=== PATIENT | female | born 1945 | race Caucasian/White ===

== ENCOUNTER 2018-06-27 08:28 | Inpatient (IN) | payer MEDICARE, OTHER ==
[~2018-06-27] VITALS: Ht 157.5 cm; Wt 89.8 kg
--- NOTE | 2018-06-27 08:38 | PHYS DOC ---
Adult General HPI HPI Patient is a 72 year old female who presents with constant 8 out of 9 left shoulder and left elbow pain that began today after she fell. Patient states she was outside working when she turned around too quick felt dizzy and fell. Patient denies any loss of consciousness. She states she hit her head on the ground. She is on a baby aspirin. Denies any neck pain. Was not tried anything for her pain. Review of Systems Review of Systems Constitutional: Denies fever or chills [] Eyes: Denies change in visual acuity, redness, or eye pain [] HENT: Denies nasal congestion or sore throat [] Respiratory: Denies cough or shortness of breath [] Cardiovascular: No additional information not addressed in HPI [] GI: Denies abdominal pain, nausea, vomiting, bloody stools or diarrhea [] : Denies dysuria or hematuria [] Musculoskeletal: Reports left shoulder pain, left elbow pain Integument: Denies rash or skin lesions [] Neurologic: Denies headache, focal weakness or sensory changes [] All other systems were reviewed and found to be within normal limits, except as documented in this note. Current Medications Current Medications Current Medications Medications (Trade) Dose Ordered Sig/Antonino Start Time Stop Time Status Last Admin Dose Admin Acetaminophen/ Hydrocodone Bitart (Lortab 5/325) 1 tab 1X ONCE 06/27/18 09:00 06/27/18 09:01 DC 06/27/18 09:02 1 TAB Cyclobenzaprine HCl (Flexeril) 10 mg 1X ONCE 06/27/18 09:00 06/27/18 09:01 DC 06/27/18 09:02 10 MG Sodium Chloride 1,000 ml @ 1,000 mls/hr 1X ONCE 06/27/18 09:30 06/27/18 10:29 DC 06/27/18 11:31 1,000 MLS/HR Allergies Allergies Allergies Coded Allergies Type Severity Reaction Last Updated Verified codeine Allergy Unknown "SICK" 06/27/18 Yes Physical Exam Physical Exam Constitutional: Well developed, well nourished, no acute distress, non-toxic appearance. [] HENT: Normocephalic, atraumatic, bilateral external ears normal, oropharynx moist, no oral exudates, nose normal. [] Eyes: PERRLA, EOMI, conjunctiva normal, no discharge. [] Neck: Normal range of motion, no tenderness, supple, no stridor. [] Cardiovascular:Heart rate regular rhythm, no murmur [] Lungs & Thorax: Bilateral breath sounds clear to auscultation [] Abdomen: Bowel sounds normal, soft, no tenderness, no masses, no pulsatile masses. [] Skin: Warm, dry, no erythema, no rash. [] Back: No tenderness, no CVA tenderness. [] Extremities: Left shoulder left elbow with no obvious deformity. Tenderness on palpation of the left olecranon process,very limited passive range of motion to the left shoulder and left elbow. Full range of motion to the left fingers. Adequate radial medial and ulnar sensation to the left upper extremity. +2 left radial pulse. Cap refill less than 2 seconds the left fingers. Neurologic: Alert and oriented X 3, normal motor function, normal sensory function, no focal deficits noted. Cranial nerves II through XII intact Psychologic: Affect normal, judgement normal, mood normal. [] Current Patient Data Vital Signs Vital Signs Date Time Temp Pulse Resp B/P (MAP) Pulse Ox O2 Delivery O2 Flow Rate FiO2 06/27/18 09:02 16 94 Room Air 06/27/18 08:30 99.1 96 159/74 (102) 99.1 Lab Values Laboratory Tests Test 06/27/18 09:06 06/27/18 09:26 06/27/18 10:05 Glucose (Fingerstick) 115 mg/dL (70-99) H Urine Collection Type Unknown Urine Color Yellow Urine Clarity Clear Urine pH 8.0 Urine Specific [place] 1.020 Urine Protein Negative mg/dL (NEG-TRACE) Urine Glucose (UA) Negative mg/dL (NEG) Urine Ketones (Stick) Negative mg/dL (NEG) Urine Blood Negative (NEG) Urine Nitrite Negative (NEG) Urine Bilirubin Negative (NEG) Urine Urobilinogen Dipstick 1.0 mg/dL (0.2 mg/dL) Urine Leukocyte Esterase Small (NEG) Urine RBC 0 /HPF (0-2) Urine WBC 5-10 /HPF (0-4) Urine Squamous Epithelial Cells Occ /LPF Urine Transitional Epithelial Cells Occ /LPF Urine Renal Epithelial Cells Occ /LPF Urine Bacteria Few /HPF (0-FEW) Urine Mucus Slight /LPF White Blood Count 10.6 x10^3/uL (4.0-11.0) Red Blood Count 4.37 x10^6/uL (3.50-5.40) Hemoglobin 13.4 g/dL (12.0-15.5) Hematocrit 38.8 % (36.0-47.0) Mean Corpuscular Volume 89 fL (79-100) Mean Corpuscular Hemoglobin 31 pg (25-35) Mean Corpuscular Hemoglobin Concent 35 g/dL (31-37) Red Cell Distribution Width 13.7 % (11.5-14.5) Platelet Count 273 x10^3/uL (140-400) Neutrophils (%) (Auto) 83 % (31-73) H Lymphocytes (%) (Auto) 10 % (24-48) L Monocytes (%) (Auto) 5 % (0-9) Eosinophils (%) (Auto) 2 % (0-3) Basophils (%) (Auto) 1 % (0-3) Neutrophils # (Auto) 8.8 x10^3uL (1.8-7.7) H Lymphocytes # (Auto) 1.0 x10^3/uL (1.0-4.8) Monocytes # (Auto) 0.5 x10^3/uL (0.0-1.1) Eosinophils # (Auto) 0.2 x10^3/uL (0.0-0.7) Basophils # (Auto) 0.1 x10^3/uL (0.0-0.2) Sodium Level 143 mmol/L (136-145) Potassium Level 3.7 mmol/L (3.5-5.1) Chloride Level 107 mmol/L (98-107) Carbon Dioxide Level 27 mmol/L (21-32) Anion Gap 9 (6-14) Blood Urea Nitrogen 12 mg/dL (7-20) Creatinine 0.9 mg/dL (0.6-1.0) Estimated GFR (Cockcroft-Gault) 61.9 Glucose Level 124 mg/dL (70-99) H Calcium Level 8.8 mg/dL (8.5-10.1) Magnesium Level 1.8 mg/dL (1.8-2.4) Creatine Kinase 226 U/L (26-192) H Creatine Kinase MB (Mass) 3.3 ng/mL (0.0-3.6) Creatine Kinase MB Relative Index 1.5 % (0-4) Troponin I Quantitative < 0.017 ng/mL (0.000-0.055) Laboratory Tests 06/27/18 10:05 Laboratory Tests 06/27/18 10:05 EKG EKG 10:[address] Katz sinus rhythm heart rate 80 no STEMI Radiology/Procedures Radiology/Procedures []PROCEDURE: CT HEAD WO CONTRAST ADDENDUM PQRS Compliance Statement: One or more of the following individualized dose reduction techniques were utilized for this examination: 1. Automated exposure control 2. Adjustment of the mA and/or kV according to patient size 3. Use of iterative reconstruction technique Electronically signed by: John Rodney MD (06/27/2018 10:50 AM) [facility] DICTATED AND SIGNED BY: JOHN RODNEY MD DATE: 06/27/18 1050 CC: LIDYA ALCARAZ APRN; UNKNOWN PCP NAME ~ CT of the head without contrast, 06/27/2018: HISTORY: Fall, head injury There is mild cerebral atrophy. The ventricles are within normal limits in size. There is no shift of the midline structures. There is no evidence of acute intracranial hemorrhage or mass effect. There is calcific plaquing of the distal internal carotid and vertebral arteries. IMPRESSION: No acute intracranial abnormality is detected. Electronically signed by: John Rodney MD (06/27/2018 10:31 AM) [facility] DICTATED and SIGNED BY: JOHN RODNEY MD DATE: 06/27/18 1030 PROCEDURE: ELBOW LEFT 3V Left shoulder, 2 views, 06/27/2018: HISTORY: Fall There is a fracture of the proximal left humerus involving the neck and head with moderate impaction at the fracture site. There are mild underlying degenerative changes at the shoulder. IMPRESSION: Acute proximal humeral fracture. Left elbow, 3 views, 06/27/2018: An AP view was not obtained, presumably due to difficulties in patient positioning relative to the proximal humeral fracture. No elbow fracture or joint effusion is evident on this limited exam. Electronically signed by: John Rodney MD (06/27/2018 9:26 AM) [facility] DICTATED and SIGNED BY: JOHN RODNEY MD DATE: 06/27/18 0910 Course & Med Decision Making Course & Med Decision Making Pertinent Labs and Imaging studies reviewed. (See chart for details) This is a 72-year-old female patient presented to the ED today with left shoulder and left elbow pain status post falling. Patient states she was working on her garden when she turned around too quickly and fell. She hit her head on the ground, no LOC, no neck pain. Left shoulder x-rays interpreted by radiologist were noted for -Acute proximal humeral fracture. Patient was placed in a sling. Ct of the head is negative Consulted with Mariel RANKIN for Dr. Gusman, she states patient can be discharged and follow-up in the office and Dr. Garcia will take care of the fracture after she sees patient in the clinic. Gave patient results and information follow-up with 's office, patient states she is not able to care for herself and her been states he recently had prostate surgery and can not care for patient. 11:[address] Melgoza and patient was admitted. Dragon Disclaimer Dragon Disclaimer This electronic medical record was generated, in whole or in part, using a voice recognition dictation system. Departure Departure Impression: Primary Impression: Fall from standing Additional Impressions: Left elbow contusion Humerus head fracture Disposition: ADMITTED INPATIENT Condition: STABLE Problem Qualifiers Primary Impression: Fall from standing Encounter type: initial encounter Qualified Codes: W19.XXXA - Unspecified fall, initial encounter Additional Impressions: Left elbow contusion Encounter type: initial encounter Qualified Codes: S50.02XA - Contusion of left elbow, initial encounter Humerus head fracture Encounter type: initial encounter Fracture type: closed Laterality: left Qualified Codes: S42.292A - Other displaced fracture of upper end of left humerus, initial encounter for closed fracture LIDYA ALCARAZ APRN Jun 27, 2018 08:38
[2018-06-27] MEDS ORDERED: HYDROcodone/APAP 5/325MG 1 TAB TABLET PO ONE (09:00)
[2018-06-27] MEDS ORDERED: CYCLOBENZAPRINE 10 MG TABLET. PO ONE (09:00)
[2018-06-27] MEDS ORDERED: IV NORMAL SALINE 1000ML BAG 1,000 ML IV ONE (09:30)
--- NOTE | 2018-06-27 09:30 | RAD ---
Left shoulder, 2 views, 06/27/2018: HISTORY: Fall There is a fracture of the proximal left humerus involving the neck and head with moderate impaction at the fracture site. There are mild underlying degenerative changes at the shoulder. IMPRESSION: Acute proximal humeral fracture. Left elbow, 3 views, 06/27/2018: An AP view was not obtained, presumably due to difficulties in patient positioning relative to the proximal humeral fracture. No elbow fracture or joint effusion is evident on this limited exam. Electronically signed by: John Rodney MD (06/27/2018 9:26 AM) [facility]
[2018-06-27 10:32] LABS: BASO # 0.1 x10^3/uL (0.0-0.2); BASO % 1 % (0-3); EOS # 0.2 x10^3/uL (0.0-0.7); EOS % 2 % (0-3); HEMATOCRIT 38.8 % (36.0-47.0); HEMOGLOBIN 13.4 g/dL (12.0-15.5); LYMPH % 10 % (24-48); MEAN CORPUSCULAR HEMOGLOBIN 31 pg (25-35); MEAN CORPUSCULAR HGB CONC 35 g/dL (31-37); MEAN CORPUSCULAR VOLUME 89 fL (79-100); MONO # 0.5 x10^3/uL (0.0-1.1); MONO % 5 % (0-9); NEUT # 8.8 x10^3uL (1.8-7.7); NEUT % 83 % (31-73); PLATELET COUNT 273 x10^3/uL (140-400); RED BLOOD COUNT 4.37 x10^6/uL (3.50-5.40); RED CELL DISTRIBUTION WIDTH 13.7 % (11.5-14.5); WHITE BLOOD COUNT 10.6 x10^3/uL (4.0-11.0)
[2018-06-27 10:34] LABS: CALCIUM 8.8 mg/dL (8.5-10.1); CREATININE 0.9 mg/dL (0.6-1.0); GFR 61.9; MAGNESIUM 1.8 mg/dL (1.8-2.4); POTASSIUM 3.7 mmol/L (3.5-5.1)
--- NOTE | 2018-06-27 10:35 | RAD ---
CT of the head without contrast, 06/27/2018: HISTORY: Fall, head injury There is mild cerebral atrophy. The ventricles are within normal limits in size. There is no shift of the midline structures. There is no evidence of acute intracranial hemorrhage or mass effect. There is calcific plaquing of the distal internal carotid and vertebral arteries. IMPRESSION: No acute intracranial abnormality is detected. Electronically signed by: John Rodney MD (06/27/2018 10:31 AM) [facility]
[2018-06-27] MEDS ORDERED: fentaNYL PF VIAL 100 MCG/2 ML VIAL IV ONE (11:15)
[2018-06-27 11:31] LABS: BILIRUBIN,URINE NEGATIVE (NEG); CLARITY,URINE CLEAR; COLOR,URINE YELLOW; NITRITE,URINE NEGATIVE (NEG); PROTEIN,URINE NEGATIVE (NEG-TRACE)
[2018-06-27 11:42] LABS: BACTERIA,URINE FEW /HPF (0-FEW); RBC,URINE 0 /HPF (0-2); SQUAMOUS EPITHELIAL CELL,UR OCC /LPF
[2018-06-27] MEDS ORDERED: ACETAMINOPHEN 325 MG TABLET. PO PRN ×2 (12:15→16:45)
[2018-06-27] MEDS ORDERED: ONDANSETRON PF 4 MG/2 ML VIAL. IV PRN ×2 (12:15→16:45)
[2018-06-27] MEDS ORDERED: ALPRAZolam 0.25 MG TABLET PO ONE (13:30)
[2018-06-27] MEDS ORDERED: INSU100I13 SQ (13:39)
[2018-06-27] MEDS ORDERED: SERT100T PO (13:39)
[2018-06-27] MEDS ORDERED: PROVENTIL HFA6.7 GM IH (13:39)
[2018-06-27] MEDS ORDERED: SIMV80TA7 PO (13:39)
[2018-06-27] MEDS ORDERED: AMLO1CAP6 PO (13:39)
[2018-06-27] MEDS ORDERED: ASPI-612 PO (13:39)
[2018-06-27] MEDS ORDERED: OMEG100020 PO (13:39)
[2018-06-27] MEDS ORDERED: UBID100C26 PO (13:39)
[2018-06-27] MEDS ORDERED: BUPR150T8 PO (13:39)
[2018-06-27] MEDS ORDERED: FLUT1DIS IH (13:39)
[2018-06-27] MEDS ORDERED: NIAC1000 PO (13:39)
[2018-06-27] MEDS ORDERED: LEVO100T5 PO (13:39)
[2018-06-27] MEDS: fentaNYL PF VIAL 100 MCG/2 ML VIAL IV PRN ×3 (15:40→22:14)
[2018-06-27 16:00] VITALS: BP 143/80
[2018-06-27 16:05] VITALS: BP 139/65
[2018-06-27 16:10] VITALS: BP 140/70
[2018-06-27] MEDS ORDERED: NON FORMULARY ITEM (Albuterol Sulfate (Proventil Hfa Inhaler) 2 PUFF) IH PRN (16:15)
[2018-06-27] MEDS ORDERED: DEXTROSE 50% 25 GM / 50ML DISP.SYRIN. IV PRN (16:15)
[2018-06-27] MEDS: ALBUTEROL SULFATE 2.5 MG/3 ML NEBU. NEB SCH ×2 (16:30→20:37)
[2018-06-27] MEDS ORDERED: ALBUTEROL SULFATE 2.5 MG/3 ML NEBU. NEB PRN (16:30)
[2018-06-27] MEDS ORDERED: DOCUSATE SODIUM 100 MG CAPSULE. PO PRN (16:45)
[2018-06-27] MEDS ORDERED: hydrALAZINE 20 MG/ML VIAL. IVP PRN (16:45)
--- NOTE | 2018-06-27 16:50 | PDOC1 ---
History and Physical Date of Admission Date of Admission 06/27/18 Identification/Chief Complaint Chief Complaint fall with left arm fx Source Source: Chart review, Patient History of Present Illness History of Present Illness Patient is a 72 year old female who presents with pain in the left arm. Pt has been feeling lightheaded in the past 2 weeks, especially when she just stands up, fell 2 weeks ago, didnot seek for medical care , has back rib cage pain. Today she was standing outside at the yard, with water around , felt lightheaded , then fell. She denies trippled or the floor was slippery to her. She hit her head, no broken skin, no neurologic deficit, and left arm, pain. EMS called, sent to ER, XR showed proximal left humerus fx. as per ER nurse, Dr. Garcia is the specialist for the fx, cannot see her today, maybe tmr or outpt in the clinic? Past Medical History Cardiovascular: HTN Endocrine: Diabetes Past Surgical History Past Surgical History: No pertinent history Family History Family History: Hypertension Social History Smoke: No ALCOHOL: none Drugs: None Current Problem List Problem List Problems Medical Problems: (1) Contusion of left shoulder Status: Acute (2) Fall from standing Status: Acute (3) Humerus head fracture Status: Acute (4) Left elbow contusion Status: Acute Current Medications Current Medications Current Medications Medications (Trade) Dose Ordered Sig/Antonino Start Time Stop Time Status Last Admin Dose Admin Acetaminophen (Tylenol) 650 mg PRN Q4HRS PRN 06/27/18 12:15 06/28/18 12:14 Acetaminophen/ Hydrocodone Bitart (Lortab 5/325) 1 tab 1X ONCE 06/27/18 09:00 06/27/18 09:01 DC 06/27/18 09:02 1 TAB Acetaminophen/ Hydrocodone Bitart (Lortab 7.5/325) 1 tab PRN Q6HRS PRN 06/27/18 16:15 Albuterol Sulfate (Ventolin Neb Soln) 2.5 mg RTQID 06/27/18 16:30 Alprazolam (Xanax) 0.25 mg 1X ONCE 06/27/18 13:30 06/27/18 13:31 DC 06/27/18 13:37 0.25 MG Amlodipine Besylate (Norvasc) 5 mg DAILY 06/27/18 17:00 Aspirin (Ecotrin) 81 mg DAILY 06/28/18 09:00 Atorvastatin Calcium (Lipitor) 40 mg QHS 06/27/18 21:00 Budesonide (Pulmicort) 0.5 mg RTBID 06/27/18 20:00 Bupropion HCl (Wellbutrin Sr) 150 mg BID 06/27/18 21:00 Cyclobenzaprine HCl (Flexeril) 10 mg 1X ONCE 06/27/18 09:00 06/27/18 09:01 DC 06/27/18 09:02 10 MG Dextrose (Dextrose 50%-Water Syringe) 12.5 gm PRN Q15MIN PRN 06/27/18 16:15 Fentanyl Citrate (Fentanyl 2ml Vial) 50 mcg PRN Q2HR PRN 06/27/18 12:15 06/28/18 12:14 06/27/18 15:40 50 MCG Insulin Glargine (Lantus) 40 units QHS 06/27/18 21:00 Insulin Human Lispro (HumaLOG) 0-9 UNITS TIDWMEALS 06/27/18 17:00 Levothyroxine Sodium (Synthroid) 100 mcg DAILY06 06/28/18 06:00 Lisinopril (Prinivil) 20 mg DAILY 06/27/18 17:00 Niacin (Slo-Niacin) 1,000 mg QHS 06/27/18 21:00 Non-Formulary Medication (Albuterol Sulfate (Proventil Hfa Inhaler)) 2 puff PRN Q4HRS PRN 06/27/18 16:15 UNV Non-Formulary Medication (Amlodipine Besylate/ Benazepril (Lotrel 5-20 Mg Capsule)) 1 cap DAILY 06/28/18 09:00 UNV Non-Formulary Medication (Fluticasone/ Salmeterol (Advair 100-50 Diskus)) 1 puff BID 06/27/18 21:00 UNV Non-Formulary Medication (Ubidecarenone (Coq-10)) 100 mg HS 06/27/18 21:00 UNV Ondansetron HCl (Zofran) 4 mg PRN Q8HRS PRN 06/27/18 12:15 06/28/18 12:14 Sertraline HCl (Zoloft) 200 mg DAILY 06/28/18 09:00 Sodium Chloride 1,000 ml @ 1,000 mls/hr 1X ONCE 06/27/18 09:30 06/27/18 10:29 DC 06/27/18 11:31 1,000 MLS/HR Allergies Allergies Allergies Coded Allergies Type Severity Reaction Last Updated Verified codeine Allergy Unknown "SICK" 06/27/18 Yes ROS Review of System CONSTITUTIONAL: No fever or chills EYES: No recent changes SKIN: No rash or itching CARDIOVASCULAR: No chest pain, syncope, palpitations, or edema RESPIRATORY: No SOB or cough GASTROINTESTINAL: No nausea, vomiting or abdominal pain NEUROLOGICAL: No headaches or weakness ENDOCRINE: No cold or heat intolerance GENITOURINARY: No urgency or frequency of urination MUSCULOSKELETAL: No back pain or joint pain LYMPHATICS: No enlarged lymph nodes PSYCHIATRIC: No anxiety or depression Physical Exam Physical Exam GEN.: No apparent distress. Alert and oriented. HEENT: Head is normocephalic, atraumatic NECK: Supple. LUNGS: Clear to auscultation. HEART: RRR, S1, S2 present. Peripheral pulses intact ABDOMEN: Soft, nontender. Positive bowel sounds. EXTREMITIES: Without any cyanosis. left arm in sling, pain ifmove, fingers move ok. NEUROLOGIC: Normal speech, normal tone PSYCHIATRIC: Normal affect, normal mood. SKIN: No ulcerations Vitals Vitals Vital Signs Date Time Temp Pulse Resp B/P (MAP) Pulse Ox O2 Delivery O2 Flow Rate FiO2 06/27/18 16:10 18 93 06/27/18 15:40 Room Air 06/27/18 12:00 90 146/72 (96) 06/27/18 08:30 99.1 99.1 Labs Labs Laboratory Tests Test 06/27/18 09:06 06/27/18 09:26 06/27/18 10:05 Glucose (Fingerstick) 115 mg/dL (70-99) Urine Collection Type Unknown Urine Color Yellow Urine Clarity Clear Urine pH 8.0 Urine Specific [place] 1.020 Urine Protein Negative mg/dL (NEG-TRACE) Urine Glucose (UA) Negative mg/dL (NEG) Urine Ketones (Stick) Negative mg/dL (NEG) Urine Blood Negative (NEG) Urine Nitrite Negative (NEG) Urine Bilirubin Negative (NEG) Urine Urobilinogen Dipstick 1.0 mg/dL (0.2 mg/dL) Urine Leukocyte Esterase Small (NEG) Urine RBC 0 /HPF (0-2) Urine WBC 5-10 /HPF (0-4) Urine Squamous Epithelial Cells Occ /LPF Urine Transitional Epithelial Cells Occ /LPF Urine Renal Epithelial Cells Occ /LPF Urine Bacteria Few /HPF (0-FEW) Urine Mucus Slight /LPF White Blood Count 10.6 x10^3/uL (4.0-11.0) Red Blood Count 4.37 x10^6/uL (3.50-5.40) Hemoglobin 13.4 g/dL (12.0-15.5) Hematocrit 38.8 % (36.0-47.0) Mean Corpuscular Volume 89 fL (79-100) Mean Corpuscular Hemoglobin 31 pg (25-35) Mean Corpuscular Hemoglobin Concent 35 g/dL (31-37) Red Cell Distribution Width 13.7 % (11.5-14.5) Platelet Count 273 x10^3/uL (140-400) Neutrophils (%) (Auto) 83 % (31-73) Lymphocytes (%) (Auto) 10 % (24-48) Monocytes (%) (Auto) 5 % (0-9) Eosinophils (%) (Auto) 2 % (0-3) Basophils (%) (Auto) 1 % (0-3) Neutrophils # (Auto) 8.8 x10^3uL (1.8-7.7) Lymphocytes # (Auto) 1.0 x10^3/uL (1.0-4.8) Monocytes # (Auto) 0.5 x10^3/uL (0.0-1.1) Eosinophils # (Auto) 0.2 x10^3/uL (0.0-0.7) Basophils # (Auto) 0.1 x10^3/uL (0.0-0.2) Sodium Level 143 mmol/L (136-145) Potassium Level 3.7 mmol/L (3.5-5.1) Chloride Level 107 mmol/L (98-107) Carbon Dioxide Level 27 mmol/L (21-32) Anion Gap 9 (6-14) Blood Urea Nitrogen 12 mg/dL (7-20) Creatinine 0.9 mg/dL (0.6-1.0) Estimated GFR (Cockcroft-Gault) 61.9 Glucose Level 124 mg/dL (70-99) Calcium Level 8.8 mg/dL (8.5-10.1) Magnesium Level 1.8 mg/dL (1.8-2.4) Creatine Kinase 226 U/L (26-192) Creatine Kinase MB (Mass) 3.3 ng/mL (0.0-3.6) Creatine Kinase MB Relative Index 1.5 % (0-4) Troponin I Quantitative < 0.017 ng/mL (0.000-0.055) Laboratory Tests Test 06/27/18 09:06 06/27/18 09:26 06/27/18 10:05 Glucose (Fingerstick) 115 mg/dL (70-99) Urine Collection Type Unknown Urine Color Yellow Urine Clarity Clear Urine pH 8.0 Urine Specific [place] 1.020 Urine Protein Negative mg/dL (NEG-TRACE) Urine Glucose (UA) Negative mg/dL (NEG) Urine Ketones (Stick) Negative mg/dL (NEG) Urine Blood Negative (NEG) Urine Nitrite Negative (NEG) Urine Bilirubin Negative (NEG) Urine Urobilinogen Dipstick 1.0 mg/dL (0.2 mg/dL) Urine Leukocyte Esterase Small (NEG) Urine RBC 0 /HPF (0-2) Urine WBC 5-10 /HPF (0-4) Urine Squamous Epithelial Cells Occ /LPF Urine Transitional Epithelial Cells Occ /LPF Urine Renal Epithelial Cells Occ /LPF Urine Bacteria Few /HPF (0-FEW) Urine Mucus Slight /LPF White Blood Count 10.6 x10^3/uL (4.0-11.0) Red Blood Count 4.37 x10^6/uL (3.50-5.40) Hemoglobin 13.4 g/dL (12.0-15.5) Hematocrit 38.8 % (36.0-47.0) Mean Corpuscular Volume 89 fL (79-100) Mean Corpuscular Hemoglobin 31 pg (25-35) Mean Corpuscular Hemoglobin Concent 35 g/dL (31-37) Red Cell Distribution Width 13.7 % (11.5-14.5) Platelet Count 273 x10^3/uL (140-400) Neutrophils (%) (Auto) 83 % (31-73) Lymphocytes (%) (Auto) 10 % (24-48) Monocytes (%) (Auto) 5 % (0-9) Eosinophils (%) (Auto) 2 % (0-3) Basophils (%) (Auto) 1 % (0-3) Neutrophils # (Auto) 8.8 x10^3uL (1.8-7.7) Lymphocytes # (Auto) 1.0 x10^3/uL (1.0-4.8) Monocytes # (Auto) 0.5 x10^3/uL (0.0-1.1) Eosinophils # (Auto) 0.2 x10^3/uL (0.0-0.7) Basophils # (Auto) 0.1 x10^3/uL (0.0-0.2) Sodium Level 143 mmol/L (136-145) Potassium Level 3.7 mmol/L (3.5-5.1) Chloride Level 107 mmol/L (98-107) Carbon Dioxide Level 27 mmol/L (21-32) Anion Gap 9 (6-14) Blood Urea Nitrogen 12 mg/dL (7-20) Creatinine 0.9 mg/dL (0.6-1.0) Estimated GFR (Cockcroft-Gault) 61.9 Glucose Level 124 mg/dL (70-99) Calcium Level 8.8 mg/dL (8.5-10.1) Magnesium Level 1.8 mg/dL (1.8-2.4) Creatine Kinase 226 U/L (26-192) Creatine Kinase MB (Mass) 3.3 ng/mL (0.0-3.6) Creatine Kinase MB Relative Index 1.5 % (0-4) Troponin I Quantitative < 0.017 ng/mL (0.000-0.055) VTE Prophylaxis Ordered VTE Prophylaxis Devices: Yes VTE Pharmacological Prophylaxi: Yes Assessment/Plan Assessment/Plan left humerus traumatic fx post fall dizzy, lightheaded unsteady gait htn dm2 hypothyroidism plan: fu with ortho cont home meds decrease lantus , npo incase sx tmr, ssi check carotid US, rib XR vitb12, vitd pain control PTOT check orthostatic BP, talked to nurse and family at bedside. RAUL SALINAS MD Jun 27, 2018 16:50
[2018-06-27] MEDS: amLODIPine BESYLATE 5 MG TABLET PO SCH (17:22)
[2018-06-27] MEDS: HYDROcodone/APAP 7.5/325MG 1 TAB TABLET PO PRN (17:23)
[2018-06-27] MEDS: LISINOPRIL 20 MG TABLET PO SCH (17:23)
[2018-06-27] MEDS: INSULIN LISPRO 300 UNITS/3 ML INSULN.PEN. SQ SCH (17:30)
[2018-06-27 19:00] VITALS: BP 119/58
[2018-06-27] MEDS: BUDESONIDE 0.5 MG/2 ML NEBU. NEB SCH (20:37)
[2018-06-27] MEDS ORDERED: NON FORMULARY ITEM (Fluticasone/Salmeterol (Advair 100-50 Diskus) 1 PUFF) IH SCH (21:00)
[2018-06-27] MEDS ORDERED: NON FORMULARY ITEM (Ubidecarenone (Coq-10) 100 MG) PO SCH (21:00)
[2018-06-27] MEDS: NIACIN ER 500 MG TABLET.ER PO SCH (22:13)
[2018-06-27] MEDS: ATORVASTATIN CALCIUM 40 MG TABLET. PO SCH (22:13)
[2018-06-27] MEDS: buPROPion SR 150 MG TABLET.SA PO SCH (22:13)
[2018-06-27] MEDS: INSULIN GLARGINE 300 UNITS/3 ML INSULN.PEN. SQ SCH (22:21)
[2018-06-27 23:00] VITALS: BP 146/77
[2018-06-28] MEDS: fentaNYL PF VIAL 100 MCG/2 ML VIAL IV PRN (01:49)
[2018-06-28 03:00] VITALS: BP 153/80
[2018-06-28 04:01] LABS: BASO # 0.1 x10^3/uL (0.0-0.2); BASO % 1 % (0-3); EOS # 0.1 x10^3/uL (0.0-0.7); EOS % 1 % (0-3); HEMATOCRIT 36.9 % (36.0-47.0); HEMOGLOBIN 12.8 g/dL (12.0-15.5); LYMPH # 1.7 x10^3/uL (1.0-4.8); LYMPH % 19 % (24-48); MEAN CORPUSCULAR HEMOGLOBIN 31 pg (25-35); MEAN CORPUSCULAR HGB CONC 35 g/dL (31-37); MEAN CORPUSCULAR VOLUME 89 fL (79-100); MONO # 0.9 x10^3/uL (0.0-1.1); MONO % 10 % (0-9); NEUT # 6.3 x10^3uL (1.8-7.7); NEUT % 69 % (31-73); PLATELET COUNT 237 x10^3/uL (140-400); RED BLOOD COUNT 4.15 x10^6/uL (3.50-5.40); RED CELL DISTRIBUTION WIDTH 13.6 % (11.5-14.5)
[2018-06-28 04:45] LABS: CALCIUM 8.8 mg/dL (8.5-10.1); CREATININE 0.7 mg/dL (0.6-1.0); GFR 82.7; POTASSIUM 3.6 mmol/L (3.5-5.1)
[2018-06-28] MEDS: LEVOTHYROXINE 100 MCG TABLET PO SCH (06:28)
[2018-06-28] MEDS: HYDROcodone/APAP 7.5/325MG 1 TAB TABLET PO PRN ×3 (06:28→18:35)
--- NOTE | 2018-06-28 06:37 | EKG ---
[facility] [address] [place] [address] Test Date: 2018-06-27 Test Time: 10:18:50 Pat Name: MAR JUNIOR Department: Room: Gender: F Supervisor Wound: : 1945 Requested By: LIDYA ALCARAZ Order Number: [id number] Reading MD: Measurements Intervals [place] Rate: 85 P: 49 NH: 144 QRS: 41 QRSD: 90 T: 29 QT: 362 QTc: 431 Interpretive Statements SINUS RHYTHM NORMAL ECG RI6.01 No previous ECG available for comparison
[2018-06-28 07:00] VITALS: BP 109/54
[2018-06-28] MEDS: BUDESONIDE 0.5 MG/2 ML NEBU. NEB SCH ×2 (07:22→19:15)
[2018-06-28] MEDS: ALBUTEROL SULFATE 2.5 MG/3 ML NEBU. NEB SCH ×4 (07:22→19:15)
[2018-06-28] MEDS: INSULIN LISPRO 300 UNITS/3 ML INSULN.PEN. SQ SCH ×3 (08:00→17:00)
[2018-06-28] MEDS: SERTRALINE 50 MG TABLET. PO SCH (08:02)
[2018-06-28] MEDS: ASPIRIN ENTERIC COATED 81 MG TABLET.DR. PO SCH ×2 (08:02→09:00)
[2018-06-28] MEDS: buPROPion SR 150 MG TABLET.SA PO SCH ×2 (08:02→20:47)
--- NOTE | 2018-06-28 08:37 | RAD ---
Exam:Bilateral ribs series Date: 06/27/2018 4:12 PM Comparison: No prior Indication: rib pain, trauma fall Findings/ Impression: AP, Oblique and Spot images of bilateral ribs are negative for acute displaced rib fracture. Negative focal pleural elevation. Symmetrical intercostal spacing. It is of note that an acute non-displaced rib fracture can be inapparent on initial post-trauma imaging. Electronically signed by: Roni Hoyt MD (06/28/2018 8:33 AM) [facility]
[2018-06-28] MEDS: amLODIPine BESYLATE 5 MG TABLET PO SCH (09:00)
[2018-06-28] MEDS ORDERED: BENAZEPRIL PO SCH (09:00)
[2018-06-28] MEDS: LISINOPRIL 20 MG TABLET PO SCH (09:00)
[2018-06-28] MEDS ORDERED: AMLODIPINE BESYLATE PO SCH (09:00)
[2018-06-28 09:07] LABS: FREE T4 0.81 ng/dL (0.76-1.46); THYROID STIM HORMONE (TSH) 1.865 uIU/mL (0.358-3.74)
--- NOTE | 2018-06-28 09:24 | RAD ---
Bilateral Duplex Carotid Ultrasound: History: Dizziness and falls. Technique: Grayscale, color Doppler, and spectral Doppler imaging was performed of the arteries of the neck. Findings: Peak systolic velocity in right common carotid artery is 105 cm/sec. Peak systolic velocity in the right internal carotid artery is 53 cm/sec. Maximum end-diastolic velocity in the right internal carotid artery is 15 cm/sec. Right ICA/CCA ratio is less than 1. Peak systolic velocity in the right external carotid artery is 61 cm/sec. Peak systolic velocity in left common carotid artery is 87 cm/sec. Peak systolic velocity in the left internal carotid artery is 51 cm/sec. Maximum end-diastolic velocity in the left internal carotid artery is 13 cm/sec. Left ICA/CCA ratio is less than 1. Peak systolic velocity in the left external carotid artery is 48 cm/sec. Both vertebral arteries demonstrate antegrade flow. Grayscale imaging demonstrates mild atherosclerotic plaquing in both carotid bulbs. Impression: No hemodynamically significant internal carotid artery stenosis. Note: Stenosis calculations for carotid ultrasound studies are derived from validated velocity criteria which are known to correlate with the NASCET methodology. Electronically signed by: Parish Singh MD (06/28/2018 9:20 AM) [place] [id number]
[2018-06-28] MEDS ORDERED: traMADol 50 MG TABLET PO PRN (10:30)
--- NOTE | 2018-06-28 10:30 | PDOC ---
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 unsteady gait htn dm2 hypothyroidism on synthroid History of Present Illness History of Present Illness Dizziness and abrupt change in position caused her to fall Tells to me stories about past Cardiac workup for the dizziness seemed to be negative Reports that they did check orthostatics initially on this admission and is negative But I look at her vital signs and, she can be 150 systolic and drops to 1 teens systolic She claims she denied any dizziness or lightheadedness while we did orthostatics 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-I did touch about autonomic instability in the diabetics which is quite common Plan: Orth to see patient later-has been nothing by mouth Check orthostatics again Keep radiation monitor Can check an echocardiogram I discussed with the family that we'll consult neurologist because of the acute on chronic persistent dizziness causing multiple falls Check TSH T3-T4-TSH should be at goal since on Synthroid This could all be likely also autonomic instability in a DM, but need to rule out the above first Discussed with multiple family members at bedside and I have provided copies of results Discussed with RN at bedside M DM complex Fall risk Vitals Vitals Vital Signs Date Time Temp Pulse Resp B/P (MAP) Pulse Ox O2 Delivery O2 Flow Rate FiO2 06/28/18 10:23 Room Air 06/28/18 07:22 96 06/28/18 07:00 98.4 91 18 109/54 (72) 98.4 Physical Exam General: Alert, Oriented X3, Cooperative Heart: Regular rate, Normal S1, Normal S2 Lungs: Clear Abdomen: Normal bowel sounds, Soft Extremities: No clubbing, No cyanosis, Other (left arm sling) Skin: No rashes, No breakdown Labs LABS Laboratory Tests Test 06/27/18 17:20 06/27/18 20:48 06/28/18 03:45 Glucose (Fingerstick) 157 mg/dL (70-99) 202 mg/dL (70-99) White Blood Count 9.0 x10^3/uL (4.0-11.0) Red Blood Count 4.15 x10^6/uL (3.50-5.40) Hemoglobin 12.8 g/dL (12.0-15.5) Hematocrit 36.9 % (36.0-47.0) Mean Corpuscular Volume 89 fL (79-100) Mean Corpuscular Hemoglobin 31 pg (25-35) Mean Corpuscular Hemoglobin Concent 35 g/dL (31-37) Red Cell Distribution Width 13.6 % (11.5-14.5) Platelet Count 237 x10^3/uL (140-400) Neutrophils (%) (Auto) 69 % (31-73) Lymphocytes (%) (Auto) 19 % (24-48) Monocytes (%) (Auto) 10 % (0-9) Eosinophils (%) (Auto) 1 % (0-3) Basophils (%) (Auto) 1 % (0-3) Neutrophils # (Auto) 6.3 x10^3uL (1.8-7.7) Lymphocytes # (Auto) 1.7 x10^3/uL (1.0-4.8) Monocytes # (Auto) 0.9 x10^3/uL (0.0-1.1) Eosinophils # (Auto) 0.1 x10^3/uL (0.0-0.7) Basophils # (Auto) 0.1 x10^3/uL (0.0-0.2) Sodium Level 139 mmol/L (136-145) Potassium Level 3.6 mmol/L (3.5-5.1) Chloride Level 106 mmol/L (98-107) Carbon Dioxide Level 26 mmol/L (21-32) Anion Gap 7 (6-14) Blood Urea Nitrogen 14 mg/dL (7-20) Creatinine 0.7 mg/dL (0.6-1.0) Estimated GFR (Cockcroft-Gault) 82.7 Glucose Level 149 mg/dL (70-99) Calcium Level 8.8 mg/dL (8.5-10.1) Vitamin B12 Level 495 pg/mL (247-911) 25-Hydroxy Vitamin D Total 23.0 ng/mL (30-100) Thyroid Stimulating Hormone (TSH) 1.865 uIU/mL (0.358-3.74) Free Thyroxine 0.81 ng/dL (0.76-1.46) Free Triiodothyronine (T3) pg/mL 2.11 pg/mL (2.18-3.98) Review of Systems Review of Systems as per HPI, the rest of review of systems 14 point negative Assessment and Plan Assessmemt and Plan Problems Medical Problems: (1) Contusion of left shoulder Status: Acute (2) Fall from standing Status: Acute (3) Humerus head fracture Status: Acute (4) Left elbow contusion Status: Acute Comment Review of Relevant I have reviewed the following items jammie (where applicable) has been applied. Labs Laboratory Tests Test 06/27/18 09:06 06/27/18 09:26 06/27/18 10:05 06/27/18 17:20 Glucose (Fingerstick) 115 mg/dL (70-99) 157 mg/dL (70-99) Urine Collection Type Unknown Urine Color Yellow Urine Clarity Clear Urine pH 8.0 Urine Specific [place] 1.020 Urine Protein Negative mg/dL (NEG-TRACE) Urine Glucose (UA) Negative mg/dL (NEG) Urine Ketones (Stick) Negative mg/dL (NEG) Urine Blood Negative (NEG) Urine Nitrite Negative (NEG) Urine Bilirubin Negative (NEG) Urine Urobilinogen Dipstick 1.0 mg/dL (0.2 mg/dL) Urine Leukocyte Esterase Small (NEG) Urine RBC 0 /HPF (0-2) Urine WBC 5-10 /HPF (0-4) Urine Squamous Epithelial Cells Occ /LPF Urine Transitional Epithelial Cells Occ /LPF Urine Renal Epithelial Cells Occ /LPF Urine Bacteria Few /HPF (0-FEW) Urine Mucus Slight /LPF White Blood Count 10.6 x10^3/uL (4.0-11.0) Red Blood Count 4.37 x10^6/uL (3.50-5.40) Hemoglobin 13.4 g/dL (12.0-15.5) Hematocrit 38.8 % (36.0-47.0) Mean Corpuscular Volume 89 fL (79-100) Mean Corpuscular Hemoglobin 31 pg (25-35) Mean Corpuscular Hemoglobin Concent 35 g/dL (31-37) Red Cell Distribution Width 13.7 % (11.5-14.5) Platelet Count 273 x10^3/uL (140-400) Neutrophils (%) (Auto) 83 % (31-73) Lymphocytes (%) (Auto) 10 % (24-48) Monocytes (%) (Auto) 5 % (0-9) Eosinophils (%) (Auto) 2 % (0-3) Basophils (%) (Auto) 1 % (0-3) Neutrophils # (Auto) 8.8 x10^3uL (1.8-7.7) Lymphocytes # (Auto) 1.0 x10^3/uL (1.0-4.8) Monocytes # (Auto) 0.5 x10^3/uL (0.0-1.1) Eosinophils # (Auto) 0.2 x10^3/uL (0.0-0.7) Basophils # (Auto) 0.1 x10^3/uL (0.0-0.2) Sodium Level 143 mmol/L (136-145) Potassium Level 3.7 mmol/L (3.5-5.1) Chloride Level 107 mmol/L (98-107) Carbon Dioxide Level 27 mmol/L (21-32) Anion Gap 9 (6-14) Blood Urea Nitrogen 12 mg/dL (7-20) Creatinine 0.9 mg/dL (0.6-1.0) Estimated GFR (Cockcroft-Gault) 61.9 Glucose Level 124 mg/dL (70-99) Calcium Level 8.8 mg/dL (8.5-10.1) Magnesium Level 1.8 mg/dL (1.8-2.4) Creatine Kinase 226 U/L (26-192) Creatine Kinase MB (Mass) 3.3 ng/mL (0.0-3.6) Creatine Kinase MB Relative Index 1.5 % (0-4) Troponin I Quantitative < 0.017 ng/mL (0.000-0.055) Test 06/27/18 20:48 06/28/18 03:45 Glucose (Fingerstick) 202 mg/dL (70-99) White Blood Count 9.0 x10^3/uL (4.0-11.0) Red Blood Count 4.15 x10^6/uL (3.50-5.40) Hemoglobin 12.8 g/dL (12.0-15.5) Hematocrit 36.9 % (36.0-47.0) Mean Corpuscular Volume 89 fL (79-100) Mean Corpuscular Hemoglobin 31 pg (25-35) Mean Corpuscular Hemoglobin Concent 35 g/dL (31-37) Red Cell Distribution Width 13.6 % (11.5-14.5) Platelet Count 237 x10^3/uL (140-400) Neutrophils (%) (Auto) 69 % (31-73) Lymphocytes (%) (Auto) 19 % (24-48) Monocytes (%) (Auto) 10 % (0-9) Eosinophils (%) (Auto) 1 % (0-3) Basophils (%) (Auto) 1 % (0-3) Neutrophils # (Auto) 6.3 x10^3uL (1.8-7.7) Lymphocytes # (Auto) 1.7 x10^3/uL (1.0-4.8) Monocytes # (Auto) 0.9 x10^3/uL (0.0-1.1) Eosinophils # (Auto) 0.1 x10^3/uL (0.0-0.7) Basophils # (Auto) 0.1 x10^3/uL (0.0-0.2) Sodium Level 139 mmol/L (136-145) Potassium Level 3.6 mmol/L (3.5-5.1) Chloride Level 106 mmol/L (98-107) Carbon Dioxide Level 26 mmol/L (21-32) Anion Gap 7 (6-14) Blood Urea Nitrogen 14 mg/dL (7-20) Creatinine 0.7 mg/dL (0.6-1.0) Estimated GFR (Cockcroft-Gault) 82.7 Glucose Level 149 mg/dL (70-99) Calcium Level 8.8 mg/dL (8.5-10.1) Vitamin B12 Level 495 pg/mL (247-911) 25-Hydroxy Vitamin D Total 23.0 ng/mL (30-100) Thyroid Stimulating Hormone (TSH) 1.865 uIU/mL (0.358-3.74) Free Thyroxine 0.81 ng/dL (0.76-1.46) Free Triiodothyronine (T3) pg/mL 2.11 pg/mL (2.18-3.98) Laboratory Tests Test 06/27/18 17:20 06/27/18 20:48 06/28/18 03:45 Glucose (Fingerstick) 157 mg/dL (70-99) 202 mg/dL (70-99) White Blood Count 9.0 x10^3/uL (4.0-11.0) Red Blood Count 4.15 x10^6/uL (3.50-5.40) Hemoglobin 12.8 g/dL (12.0-15.5) Hematocrit 36.9 % (36.0-47.0) Mean Corpuscular Volume 89 fL (79-100) Mean Corpuscular Hemoglobin 31 pg (25-35) Mean Corpuscular Hemoglobin Concent 35 g/dL (31-37) Red Cell Distribution Width 13.6 % (11.5-14.5) Platelet Count 237 x10^3/uL (140-400) Neutrophils (%) (Auto) 69 % (31-73) Lymphocytes (%) (Auto) 19 % (24-48) Monocytes (%) (Auto) 10 % (0-9) Eosinophils (%) (Auto) 1 % (0-3) Basophils (%) (Auto) 1 % (0-3) Neutrophils # (Auto) 6.3 x10^3uL (1.8-7.7) Lymphocytes # (Auto) 1.7 x10^3/uL (1.0-4.8) Monocytes # (Auto) 0.9 x10^3/uL (0.0-1.1) Eosinophils # (Auto) 0.1 x10^3/uL (0.0-0.7) Basophils # (Auto) 0.1 x10^3/uL (0.0-0.2) Sodium Level 139 mmol/L (136-145) Potassium Level 3.6 mmol/L (3.5-5.1) Chloride Level 106 mmol/L (98-107) Carbon Dioxide Level 26 mmol/L (21-32) Anion Gap 7 (6-14) Blood Urea Nitrogen 14 mg/dL (7-20) Creatinine 0.7 mg/dL (0.6-1.0) Estimated GFR (Cockcroft-Gault) 82.7 Glucose Level 149 mg/dL (70-99) Calcium Level 8.8 mg/dL (8.5-10.1) Vitamin B12 Level 495 pg/mL (247-911) 25-Hydroxy Vitamin D Total 23.0 ng/mL (30-100) Thyroid Stimulating Hormone (TSH) 1.865 uIU/mL (0.358-3.74) Free Thyroxine 0.81 ng/dL (0.76-1.46) Free Triiodothyronine (T3) pg/mL 2.11 pg/mL (2.18-3.98) Medications Current Medications Acetaminophen/ Hydrocodone Bitart (Lortab 5/325) 1 tab 1X ONCE PO Last administered on 06/27/18 09:02; Start 06/27/18 at 09:00; Stop 06/27/18 at 09:01 ; Status DC Cyclobenzaprine HCl (Flexeril) 10 mg 1X ONCE PO Last administered on at 09:02; Start 06/27/18 at 09:00; Stop 06/27/18 at 09:01; Status DC Sodium Chloride 1,000 ml @ 1,000 mls/hr 1X ONCE IV Last administered on at 11:31; Start 06/27/18 at 09:30; Stop 06/27/18 at 10:29; Status DC Fentanyl Citrate (Fentanyl 2ml Vial) 50 mcg 1X ONCE IV Last administered on 11/02at 11:34; Start 06/27/18 at 11:15; Stop 06/27/18 at 11:16; Status DC Ondansetron HCl (Zofran) 4 mg PRN Q8HRS PRN IV NAUSEA/VOMITING; Start 06/27/18 at 12:15; Stop 06/27/18 at 16:47; Status DC Fentanyl Citrate (Fentanyl 2ml Vial) 50 mcg PRN Q2HR PRN IV PAIN Last administered on 06/28/18at 01:49; Start 06/27/18 at 12:15; Stop 06/28/18 at 12:14 Acetaminophen (Tylenol) 650 mg PRN Q4HRS PRN PO FEVER; Start 06/27/18 at 12:15 ; Stop 06/27/18 at 16:47; Status DC Alprazolam (Xanax) 0.25 mg 1X ONCE PO Last administered on 06/27/18at 13:37; Start 06/27/18 at 13:30; Stop 06/27/18 at 13:31; Status DC Aspirin (Ecotrin) 81 mg DAILY PO Last administered on 06/28/18at 09:00; Start at 09:00 Bupropion HCl (Wellbutrin Sr) 150 mg BID PO Last administered on 06/27/18at 22: 13; Start 06/27/18 at 21:00 Insulin Glargine (Lantus) 40 units QHS SQ Last administered on 06/27/18at 22:21 ; Start 06/27/18 at 21:00 Levothyroxine Sodium (Synthroid) 100 mcg DAILY06 PO Last administered on at 06:28; Start 06/28/18 at 06:00 Non-Formulary Medication (Albuterol Sulfate (Proventil Hfa Inhaler)) 2 puff PRN Q4HRS PRN IH FOR ASTHMA; Start 06/27/18 at 16:15; Status UNV Non-Formulary Medication (Amlodipine Besylate/ Benazepril (Lotrel 5-20 Mg Capsule)) 1 cap DAILY PO ; Start 06/28/18 at 09:00; Status UNV Non-Formulary Medication (Fluticasone/ Salmeterol (Advair 100-50 Diskus)) 1 puff BID IH ; Start 06/27/18 at 21:00; Status UNV Niacin (Slo-Niacin) 1,000 mg QHS PO Last administered on 06/27/18at 22:13; Start 06/27/18 at 21:00 Sertraline HCl (Zoloft) 200 mg DAILY PO ; Start 06/28/18 at 09:00 Atorvastatin Calcium (Lipitor) 40 mg QHS PO Last administered on 06/27/18at 22: 13; Start 06/27/18 at 21:00 Non-Formulary Medication (Ubidecarenone (Coq-10)) 100 mg HS PO ; Start 06/27/18 at 21:00; Status UNV Insulin Human Lispro (HumaLOG) 0-9 UNITS TIDWMEALS SQ Last administered on 06/27at 17:30; Start 06/27/18 at 17:00 Dextrose (Dextrose 50%-Water Syringe) 12.5 gm PRN Q15MIN PRN IV SEE COMMENTS; Start 06/27/18 at 16:15 Acetaminophen/ Hydrocodone Bitart (Lortab 7.5/325) 1 tab PRN Q6HRS PRN PO PAIN Last administered on 06/28/18at 10:23; Start 06/27/18 at 16:15 Albuterol Sulfate (Ventolin Neb Soln) 2.5 mg PRN Q4HRS PRN NEB SHORTNESS OF BREATH; Start 06/27/18 at 16:30 Albuterol Sulfate (Ventolin Neb Soln) 2.5 mg RTQID NEB Last administered on at 07:22; Start 06/27/18 at 16:30 Budesonide (Pulmicort) 0.5 mg RTBID NEB Last administered on 06/28/18at 07:22; Start 06/27/18 at 20:00 Amlodipine Besylate (Norvasc) 5 mg DAILY PO Last administered on 06/27/18at 17: 22; Start 06/27/18 at 17:00 Lisinopril (Prinivil) 20 mg DAILY PO Last administered on 06/27/18at 17:23; Start 06/27/18 at 17:00 Acetaminophen (Tylenol) 650 mg PRN Q6HRS PRN PO FEVER; Start 06/27/18 at 16:45 Ondansetron HCl (Zofran) 4 mg PRN Q6HRS PRN IV NAUSEA/VOMITING; Start 06/27/18 at 16:45 Tramadol HCl (Ultram) 50 mg PRN Q6HRS PRN PO MILD TO MODERATE PAIN; Start 06/27 at 16:45 Hydralazine HCl (Apresoline Inj) 10 mg PRN Q4HRS PRN IVP ELEVATED BP, SEE COMMENTS; Start 06/27/18 at 16:45 Docusate Sodium (Colace) 100 mg PRN DAILY PRN PO CONSTIPATION; Start 06/27/18 at 16:45 Active Scripts Active Reported Coq-10 (Ubidecarenone) 100 Mg Capsule 100 Mg PO HS Wellbutrin Sr (Bupropion Hcl) 150 Mg Tablet.er 1 Tab PO BID Aspirin Ec (Aspirin) 81 Mg Tablet.dr 1 Tab PO DAILY Fish Oil Conc 1,000 mg Softgel ([place]-3/Dha/Epa/Fish Oil) 1,000 Mg Capsule 4, 000 Mg PO Proventil Hfa Inhaler (Albuterol Sulfate) 6.7 Gm Hfa.aer.ad 2 Puff IH PRN Q4HRS PRN Advair 100-50 Diskus (Fluticasone/Salmeterol) 1 Each Disk.w.dev 1 Puff IH BID Niaspan (Niacin) 1,000 Mg Tab.er.24h 1 Tab PO QHS Levothyroxine Sodium 100 Mcg Tablet 1 Tab PO DAILY Lotrel 5-20 Mg Capsule (Amlodipine Besylate/Benazepril) 1 Each Capsule 1 Cap PO DAILY Zoloft (Sertraline Hcl) 100 Mg Tablet 2 Tab PO DAILY Simvastatin 80 Mg Tablet 80 Mg PO HS Lantus Solostar (Insulin Glargine,Hum.rec.anlog) 100 Unit/1 Ml Insuln.pen 65 Unit SQ QHS Vitals/I & O Vital Sign - Last 24 Hours 06/27/18 06/27/18 06/27/18 06/27/18 11:00 11:30 11:34 12:00 Pulse 86 88 90 Resp 26 18 15 17 B/P (MAP) 170/86 (114) 150/73 (98) 146/72 (96) Pulse Ox 96 93 O2 Delivery Room Air Room Air Room Air Room Air 06/27/18 06/27/18 06/27/18 06/27/18 15:00 15:40 16:00 16:05 Pulse 89 93 Resp 17 B/P (MAP) 143/80 (101) 139/65 (89) Pulse Ox 93 93 93 O2 Delivery Room Air Room Air Room Air Room Air 06/27/18 06/27/18 06/27/18 06/27/18 16:10 17:22 17:23 17:23 Pulse 99 99 99 Resp 17 B/P (MAP) 140/70 (93) 140/70 140/70 Pulse Ox 96 93 O2 Delivery Room Air Room Air 06/27/18 06/27/18 06/27/18 06/27/18 18:03 18:25 18:25 19:00 Temp 98.2 98.2 Pulse 73 Resp 17 17 18 B/P (MAP) 119/58 (78) Pulse Ox 93 93 95 O2 Delivery Room Air Room Air Room Air Room Air 06/27/18 06/27/18 06/27/18 06/28/18 20:00 21:14 23:00 01:49 Temp 98.8 98.8 Pulse 89 Resp 18 20 B/P (MAP) 146/77 (100) Pulse Ox 94 97 97 O2 Delivery Room Air Room Air Room Air Room Air 06/28/18 06/28/18 06/28/18 06/28/18 03:00 07:00 07:22 10:23 Temp 98.3 98.4 98.3 98.4 Pulse 87 91 Resp 18 18 B/P (MAP) 153/80 (104) 109/54 (72) Pulse Ox 92 95 96 O2 Delivery Room Air Room Air Room Air Room Air Intake and Output 06/27/18 06/27/18 06/28/18 15:00 23:00 07:00 Intake Total 0 ml Balance 0 ml IRMA MOODY MD Jun 28, 2018 10:30
[2018-06-28 11:00] VITALS: BP 128/61
[2018-06-28 15:00] VITALS: BP 138/66
--- NOTE | 2018-06-28 15:53 | PDOC2 ---
NEUROLOGY CONSULT Date of Admission Date of Admission DATE: 06/28/18 TIME: 15:42 Reason for Consult Reason for Consult: IMPRESSION: Left acute proximal humeral fracture from falling. Falls. Dizziness. Light headiness x 2 weeks. DM. HTN. HLD. Vit D deficiency. Obesity. RECOMMENDATIONS/PLAN: MRI w/o contrast. Treat medical diseases. Vit D supplement. Weight reduction. Discussed with her at bedside. HISTORY OF THE PRESENT ILLNESS: 72-y-old female patient with above medicla diseases has been having symptoms of light headiness for about 2 weeks. She also has symptoms of dizziness for about 2 weeks as well. She had a fall at home which resulted in her left side humeral fracture. She denied seizure. Past Medical History Cardiovascular: HTN Endocrine: Diabetes Past Surgical History No major surgery recently. Family History Hypertension Social History Smoke: No ALCOHOL: none Drugs: None ALLERGY: Reviewed. MEDICATIONS: Refer to MAR REVIEW OF SYSTEMS: Constitutional: Obesity. Head: No traumatic brain or head injury. Skin: No edema, or rash. Ear: No infection. Eyes: No vision loss or color blindness. Nose: No bleeding or purulent discharges. Hearing: Hearing decrease. Neck: No injury. Breast: No history of cancer, masses,or discharges. Cardiac: HTN, HLD. Pulmonary: No COPD. GI: No GI ulcer, GI bleeding. Urinary/genital: UTI. Endocrinologic: Diabetes Mellitus, obesity. Skeletomuscular: No muscular atrophy, deformity. Neurological: see HP. Psychiatric: Denies drug use/abuse. Otherwise, not [id number] review of systems. PHYSICAL EXAMINATION: General appearance is in subacute distress. HEENT: Normocephalic and nontraumatic. Eyes, nose, ears, and throat are unremarkable. Neck is supple. No lymphadenopathy. No bruits are heard over the carotid artery. No crepitus. Cardiovascular: S1, S2, regular rate and rhythm. Pulmonary: Clear to auscultation bilaterally. Abdomen: Bowel sounds are positive. Abdomen is soft, nontender, and nondistended. Extremities: No rash, lesions, or edema. No restriction of range of motion NEUROLOGICAL EXAMINATION: Alert Oriented to time, place and person, but reaction was slow. PERRL. EOMI. Horizontal nystagmus elicited bilaterally. CN: no focal findings. Muscle tone: within normal. Muscle strength: 4+ DTR: 1-2 Plantar reflex: Flexor response bilaterally Gait: not examined in bed. Sensory exam: no abnormal findings. No acute cerebellar signs elicited. F-T-N test fine. Current Medications Current Medications Current Medications Acetaminophen/ Hydrocodone Bitart (Lortab 5/325) 1 tab 1X ONCE PO Last administered on 06/27/18 09:02; Start 06/27/18 at 09:00; Stop 06/27/18 at 09:01 ; Status DC Cyclobenzaprine HCl (Flexeril) 10 mg 1X ONCE PO Last administered on at 09:02; Start 06/27/18 at 09:00; Stop 06/27/18 at 09:01; Status DC Sodium Chloride 1,000 ml @ 1,000 mls/hr 1X ONCE IV Last administered on at 11:31; Start 06/27/18 at 09:30; Stop 06/27/18 at 10:29; Status DC Fentanyl Citrate (Fentanyl 2ml Vial) 50 mcg 1X ONCE IV Last administered on 11/02at 11:34; Start 06/27/18 at 11:15; Stop 06/27/18 at 11:16; Status DC Ondansetron HCl (Zofran) 4 mg PRN Q8HRS PRN IV NAUSEA/VOMITING; Start 06/27/18 at 12:15; Stop 06/27/18 at 16:47; Status DC Fentanyl Citrate (Fentanyl 2ml Vial) 50 mcg PRN Q2HR PRN IV PAIN Last administered on 06/28/18at 01:49; Start 06/27/18 at 12:15; Stop 06/28/18 at 12:14 ; Status DC Acetaminophen (Tylenol) 650 mg PRN Q4HRS PRN PO FEVER; Start 06/27/18 at 12:15 ; Stop 06/27/18 at 16:47; Status DC Alprazolam (Xanax) 0.25 mg 1X ONCE PO Last administered on 06/27/18at 13:37; Start 06/27/18 at 13:30; Stop 06/27/18 at 13:31; Status DC Aspirin (Ecotrin) 81 mg DAILY PO Last administered on 06/28/18at 09:00; Start at 09:00 Bupropion HCl (Wellbutrin Sr) 150 mg BID PO Last administered on 06/27/18at 22: 13; Start 06/27/18 at 21:00 Insulin Glargine (Lantus) 40 units QHS SQ Last administered on 06/27/18at 22:21 ; Start 06/27/18 at 21:00 Levothyroxine Sodium (Synthroid) 100 mcg DAILY06 PO Last administered on at 06:28; Start 06/28/18 at 06:00 Non-Formulary Medication (Albuterol Sulfate (Proventil Hfa Inhaler)) 2 puff PRN Q4HRS PRN IH FOR ASTHMA; Start 06/27/18 at 16:15; Status UNV Non-Formulary Medication (Amlodipine Besylate/ Benazepril (Lotrel 5-20 Mg Capsule)) 1 cap DAILY PO ; Start 06/28/18 at 09:00; Status UNV Non-Formulary Medication (Fluticasone/ Salmeterol (Advair 100-50 Diskus)) 1 puff BID IH ; Start 06/27/18 at 21:00; Status UNV Niacin (Slo-Niacin) 1,000 mg QHS PO Last administered on 06/27/18at 22:13; Start 06/27/18 at 21:00 Sertraline HCl (Zoloft) 200 mg DAILY PO ; Start 06/28/18 at 09:00 Atorvastatin Calcium (Lipitor) 40 mg QHS PO Last administered on 06/27/18at 22: 13; Start 06/27/18 at 21:00 Non-Formulary Medication (Ubidecarenone (Coq-10)) 100 mg HS PO ; Start 06/27/18 at 21:00; Status UNV Insulin Human Lispro (HumaLOG) 0-9 UNITS TIDWMEALS SQ Last administered on 06/27at 17:30; Start 06/27/18 at 17:00 Dextrose (Dextrose 50%-Water Syringe) 12.5 gm PRN Q15MIN PRN IV SEE COMMENTS; Start 06/27/18 at 16:15 Acetaminophen/ Hydrocodone Bitart (Lortab 7.5/325) 1 tab PRN Q6HRS PRN PO SEVERE PAIN Last administered on 06/28/18at 10:23; Start 06/27/18 at 16:15 Albuterol Sulfate (Ventolin Neb Soln) 2.5 mg PRN Q4HRS PRN NEB SHORTNESS OF BREATH; Start 06/27/18 at 16:30 Albuterol Sulfate (Ventolin Neb Soln) 2.5 mg RTQID NEB Last administered on at 12:07; Start 06/27/18 at 16:30 Budesonide (Pulmicort) 0.5 mg RTBID NEB Last administered on 06/28/18at 07:22; Start 06/27/18 at 20:00 Amlodipine Besylate (Norvasc) 5 mg DAILY PO Last administered on 06/27/18at 17: 22; Start 06/27/18 at 17:00 Lisinopril (Prinivil) 20 mg DAILY PO Last administered on 06/27/18at 17:23; Start 06/27/18 at 17:00 Acetaminophen (Tylenol) 650 mg PRN Q6HRS PRN PO FEVER; Start 06/27/18 at 16:45 Ondansetron HCl (Zofran) 4 mg PRN Q6HRS PRN IV NAUSEA/VOMITING; Start 06/27/18 at 16:45 Tramadol HCl (Ultram) 50 mg PRN Q6HRS PRN PO MILD TO MODERATE PAIN; Start 06/27 at 16:45 Hydralazine HCl (Apresoline Inj) 10 mg PRN Q4HRS PRN IVP ELEVATED BP, SEE COMMENTS; Start 06/27/18 at 16:45 Docusate Sodium (Colace) 100 mg PRN DAILY PRN PO CONSTIPATION; Start 06/27/18 at 16:45 Tramadol HCl (Ultram) 50 mg PRN Q6HRS PRN PO MILD TO MODERATE PAIN; Start 06/28 at 10:30; Stop 06/28/18 at 15:20; Status DC Active Scripts Active Reported Coq-10 (Ubidecarenone) 100 Mg Capsule 100 Mg PO HS Wellbutrin Sr (Bupropion Hcl) 150 Mg Tablet.er 1 Tab PO BID Aspirin Ec (Aspirin) 81 Mg Tablet.dr 1 Tab PO DAILY Fish Oil Conc 1,000 mg Softgel ([place]-3/Dha/Epa/Fish Oil) 1,000 Mg Capsule 4, 000 Mg PO Proventil Hfa Inhaler (Albuterol Sulfate) 6.7 Gm Hfa.aer.ad 2 Puff IH PRN Q4HRS PRN Advair 100-50 Diskus (Fluticasone/Salmeterol) 1 Each Disk.w.dev 1 Puff IH BID Niaspan (Niacin) 1,000 Mg Tab.er.24h 1 Tab PO QHS Levothyroxine Sodium 100 Mcg Tablet 1 Tab PO DAILY Lotrel 5-20 Mg Capsule (Amlodipine Besylate/Benazepril) 1 Each Capsule 1 Cap PO DAILY Zoloft (Sertraline Hcl) 100 Mg Tablet 2 Tab PO DAILY Simvastatin 80 Mg Tablet 80 Mg PO HS Lantus Solostar (Insulin Glargine,Hum.rec.anlog) 100 Unit/1 Ml Insuln.pen 65 Unit SQ QHS Allergies Allergies: Allergies Coded Allergies Type Severity Reaction Last Updated Verified amoxicillin Allergy Unknown 06/27/18 Yes clavulanic acid Allergy Unknown 06/27/18 Yes codeine Adverse Reaction Intermediate "SICK" 06/28/18 Yes ROS Review of System The patient denies any associated fevers, chills, headache, ear pain, rhinorrhea , sore throat, stiff neck, productive cough, chest pain, shortness of breath, back or flank pain, abdominal pain, nausea, vomiting, diarrhea, constipation, dysuria, rash, numbness, weakness, tingling, incontinence, difficulty ambulating, or diaphoresis. Physical Exam Physical Exam General: Well developed, well nourished, no acute distress, well appearing HEENT: Pupils equally round and reactive to light, EOMI, no discharge, normal conjunctiva Neck: Supple, no nuchal rigidity, no JVD, trachea midline, no tenderness Cardiac: RRR, no murmurs, no gallops, no rubs Chest/Lungs: CTAB, no wheeze, no rhonchi, no crackles Abdomen: soft, non-distended, no guarding, no peritoneal signs, non-tender Back: No tenderness Extremities: no edema, pulses intact, non-tender,capillary refill <3 sec bilateral upper and lower extremities, Neuro: Alert and oriented x 4, no focal deficits, normal speech Vitals Vitals: Vital Signs Date Time Temp Pulse Resp B/P (MAP) Pulse Ox O2 Delivery O2 Flow Rate FiO2 06/28/18 12:18 Room Air 06/28/18 12:08 92 06/28/18 11:00 98.3 87 18 128/61 (83) 98.3 Labs Labs Laboratory Tests Test 06/27/18 09:06 06/27/18 09:26 06/27/18 10:05 06/27/18 17:20 Glucose (Fingerstick) 115 mg/dL (70-99) 157 mg/dL (70-99) Urine Collection Type Unknown Urine Color Yellow Urine Clarity Clear Urine pH 8.0 Urine Specific [place] 1.020 Urine Protein Negative mg/dL (NEG-TRACE) Urine Glucose (UA) Negative mg/dL (NEG) Urine Ketones (Stick) Negative mg/dL (NEG) Urine Blood Negative (NEG) Urine Nitrite Negative (NEG) Urine Bilirubin Negative (NEG) Urine Urobilinogen Dipstick 1.0 mg/dL (0.2 mg/dL) Urine Leukocyte Esterase Small (NEG) Urine RBC 0 /HPF (0-2) Urine WBC 5-10 /HPF (0-4) Urine Squamous Epithelial Cells Occ /LPF Urine Transitional Epithelial Cells Occ /LPF Urine Renal Epithelial Cells Occ /LPF Urine Bacteria Few /HPF (0-FEW) Urine Mucus Slight /LPF White Blood Count 10.6 x10^3/uL (4.0-11.0) Red Blood Count 4.37 x10^6/uL (3.50-5.40) Hemoglobin 13.4 g/dL (12.0-15.5) Hematocrit 38.8 % (36.0-47.0) Mean Corpuscular Volume 89 fL (79-100) Mean Corpuscular Hemoglobin 31 pg (25-35) Mean Corpuscular Hemoglobin Concent 35 g/dL (31-37) Red Cell Distribution Width 13.7 % (11.5-14.5) Platelet Count 273 x10^3/uL (140-400) Neutrophils (%) (Auto) 83 % (31-73) Lymphocytes (%) (Auto) 10 % (24-48) Monocytes (%) (Auto) 5 % (0-9) Eosinophils (%) (Auto) 2 % (0-3) Basophils (%) (Auto) 1 % (0-3) Neutrophils # (Auto) 8.8 x10^3uL (1.8-7.7) Lymphocytes # (Auto) 1.0 x10^3/uL (1.0-4.8) Monocytes # (Auto) 0.5 x10^3/uL (0.0-1.1) Eosinophils # (Auto) 0.2 x10^3/uL (0.0-0.7) Basophils # (Auto) 0.1 x10^3/uL (0.0-0.2) Sodium Level 143 mmol/L (136-145) Potassium Level 3.7 mmol/L (3.5-5.1) Chloride Level 107 mmol/L (98-107) Carbon Dioxide Level 27 mmol/L (21-32) Anion Gap 9 (6-14) Blood Urea Nitrogen 12 mg/dL (7-20) Creatinine 0.9 mg/dL (0.6-1.0) Estimated GFR (Cockcroft-Gault) 61.9 Glucose Level 124 mg/dL (70-99) Calcium Level 8.8 mg/dL (8.5-10.1) Magnesium Level 1.8 mg/dL (1.8-2.4) Creatine Kinase 226 U/L (26-192) Creatine Kinase MB (Mass) 3.3 ng/mL (0.0-3.6) Creatine Kinase MB Relative Index 1.5 % (0-4) Troponin I Quantitative < 0.017 ng/mL (0.000-0.055) Test 06/27/18 20:48 06/28/18 03:45 06/28/18 07:53 06/28/18 11:55 Glucose (Fingerstick) 202 mg/dL (70-99) 165 mg/dL (70-99) 132 mg/dL (70-99) White Blood Count 9.0 x10^3/uL (4.0-11.0) Red Blood Count 4.15 x10^6/uL (3.50-5.40) Hemoglobin 12.8 g/dL (12.0-15.5) Hematocrit 36.9 % (36.0-47.0) Mean Corpuscular Volume 89 fL (79-100) Mean Corpuscular Hemoglobin 31 pg (25-35) Mean Corpuscular Hemoglobin Concent 35 g/dL (31-37) Red Cell Distribution Width 13.6 % (11.5-14.5) Platelet Count 237 x10^3/uL (140-400) Neutrophils (%) (Auto) 69 % (31-73) Lymphocytes (%) (Auto) 19 % (24-48) Monocytes (%) (Auto) 10 % (0-9) Eosinophils (%) (Auto) 1 % (0-3) Basophils (%) (Auto) 1 % (0-3) Neutrophils # (Auto) 6.3 x10^3uL (1.8-7.7) Lymphocytes # (Auto) 1.7 x10^3/uL (1.0-4.8) Monocytes # (Auto) 0.9 x10^3/uL (0.0-1.1) Eosinophils # (Auto) 0.1 x10^3/uL (0.0-0.7) Basophils # (Auto) 0.1 x10^3/uL (0.0-0.2) Sodium Level 139 mmol/L (136-145) Potassium Level 3.6 mmol/L (3.5-5.1) Chloride Level 106 mmol/L (98-107) Carbon Dioxide Level 26 mmol/L (21-32) Anion Gap 7 (6-14) Blood Urea Nitrogen 14 mg/dL (7-20) Creatinine 0.7 mg/dL (0.6-1.0) Estimated GFR (Cockcroft-Gault) 82.7 Glucose Level 149 mg/dL (70-99) Calcium Level 8.8 mg/dL (8.5-10.1) Vitamin B12 Level 495 pg/mL (247-911) 25-Hydroxy Vitamin D Total 23.0 ng/mL (30-100) Thyroid Stimulating Hormone (TSH) 1.865 uIU/mL (0.358-3.74) Free Thyroxine 0.81 ng/dL (0.76-1.46) Free Triiodothyronine (T3) pg/mL 2.11 pg/mL (2.18-3.98) Laboratory Tests Test 06/27/18 17:20 06/27/18 20:48 06/28/18 03:45 06/28/18 07:53 Glucose (Fingerstick) 157 mg/dL (70-99) 202 mg/dL (70-99) 165 mg/dL (70-99) White Blood Count 9.0 x10^3/uL (4.0-11.0) Red Blood Count 4.15 x10^6/uL (3.50-5.40) Hemoglobin 12.8 g/dL (12.0-15.5) Hematocrit 36.9 % (36.0-47.0) Mean Corpuscular Volume 89 fL (79-100) Mean Corpuscular Hemoglobin 31 pg (25-35) Mean Corpuscular Hemoglobin Concent 35 g/dL (31-37) Red Cell Distribution Width 13.6 % (11.5-14.5) Platelet Count 237 x10^3/uL (140-400) Neutrophils (%) (Auto) 69 % (31-73) Lymphocytes (%) (Auto) 19 % (24-48) Monocytes (%) (Auto) 10 % (0-9) Eosinophils (%) (Auto) 1 % (0-3) Basophils (%) (Auto) 1 % (0-3) Neutrophils # (Auto) 6.3 x10^3uL (1.8-7.7) Lymphocytes # (Auto) 1.7 x10^3/uL (1.0-4.8) Monocytes # (Auto) 0.9 x10^3/uL (0.0-1.1) Eosinophils # (Auto) 0.1 x10^3/uL (0.0-0.7) Basophils # (Auto) 0.1 x10^3/uL (0.0-0.2) Sodium Level 139 mmol/L (136-145) Potassium Level 3.6 mmol/L (3.5-5.1) Chloride Level 106 mmol/L (98-107) Carbon Dioxide Level 26 mmol/L (21-32) Anion Gap 7 (6-14) Blood Urea Nitrogen 14 mg/dL (7-20) Creatinine 0.7 mg/dL (0.6-1.0) Estimated GFR (Cockcroft-Gault) 82.7 Glucose Level 149 mg/dL (70-99) Calcium Level 8.8 mg/dL (8.5-10.1) Vitamin B12 Level 495 pg/mL (247-911) 25-Hydroxy Vitamin D Total 23.0 ng/mL (30-100) Thyroid Stimulating Hormone (TSH) 1.865 uIU/mL (0.358-3.74) Free Thyroxine 0.81 ng/dL (0.76-1.46) Free Triiodothyronine (T3) pg/mL 2.11 pg/mL (2.18-3.98) Test 06/28/18 11:55 Glucose (Fingerstick) 132 mg/dL (70-99) GRACIELA MERCADO MD Jun 28, 2018 15:53
--- NOTE | 2018-06-28 16:03 | RAD ---
MRI of the brain without contrast 06/28/2018 Clinical History: Dizziness and weakness. Technique: Unenhanced T1-weighted sagittal and axial, T2-weighted axial and coronal and FLAIR, gradient echo and diffusion-weighted axial images of the brain were obtained. Findings: Comparison is made to a CT scan of the head dated 06/27/2018. There is generalized parenchymal atrophy. Patchy and a few small scattered areas of increased signal intensity are seen within the periventricular and subcortical white matter of both cerebral hemispheres on the FLAIR and T2-weighted images consistent with areas of mild small vessel ischemic disease. No acute parenchymal abnormality is seen. No extra-axial fluid collection is seen. There is no MRI evidence of acute ischemia/infarction. The paranasal sinuses are essentially clear. Normal flow voids are seen within the major vascular structures surrounding the brain parenchyma. Impression: No acute parenchymal abnormality is seen. Electronically signed by: Everardo Wills MD (06/28/2018 3:59 PM) [id number]
--- NOTE | 2018-06-28 17:06 | PDOC2 ---
CONSULT Date of Consult Date of Consult DATE: 06/28/18 TIME: 12:30 Reason for Consult Reason for Consult: left proximal humerus fracture Referring Physician Referring Physician: ED Identification/Chief Complaint Chief Complaint left shoulder pain Source Source: Chart review, Patient History of Present Illness Reason for Visit: The patient is a 72 year old female with a left proximal humerus fracture. She states she has been dizzy for about two weeks, with unknown etiology. She was out working in her yard yesterday when she turned around quickly, got dizzy, and fell onto her left side. She now has left shoulder pain and states she cannot lift her arm. She is now wearing a left arm sling. Past Medical History Cardiovascular: HTN Endocrine: Diabetes Past Surgical History Past Surgical History: No pertinent history Family History Family History: Hypertension Social History No ALCOHOL: none Drugs: None Lives: with Family Current Problem List Problem List Problems Medical Problems: (1) Contusion of left shoulder Status: Acute (2) Fall from standing Status: Acute (3) Humerus head fracture Status: Acute (4) Left elbow contusion Status: Acute Current Medications Current Medications Current Medications Acetaminophen/ Hydrocodone Bitart (Lortab 5/325) 1 tab 1X ONCE PO Last administered on 06/27/18at 09:02; Start 06/27/18 at 09:00; Stop 06/27/18 at 09:01 ; Status DC Cyclobenzaprine HCl (Flexeril) 10 mg 1X ONCE PO Last administered on at 09:02; Start 06/27/18 at 09:00; Stop 06/27/18 at 09:01; Status DC Sodium Chloride 1,000 ml @ 1,000 mls/hr 1X ONCE IV Last administered on at 11:31; Start 06/27/18 at 09:30; Stop 06/27/18 at 10:29; Status DC Fentanyl Citrate (Fentanyl 2ml Vial) 50 mcg 1X ONCE IV Last administered on 11/02at 11:34; Start 06/27/18 at 11:15; Stop 06/27/18 at 11:16; Status DC Ondansetron HCl (Zofran) 4 mg PRN Q8HRS PRN IV NAUSEA/VOMITING; Start 06/27/18 at 12:15; Stop 06/27/18 at 16:47; Status DC Fentanyl Citrate (Fentanyl 2ml Vial) 50 mcg PRN Q2HR PRN IV PAIN Last administered on 06/28/18at 01:49; Start 06/27/18 at 12:15; Stop 06/28/18 at 12:14 ; Status DC Acetaminophen (Tylenol) 650 mg PRN Q4HRS PRN PO FEVER; Start 06/27/18 at 12:15 ; Stop 06/27/18 at 16:47; Status DC Alprazolam (Xanax) 0.25 mg 1X ONCE PO Last administered on 06/27/18at 13:37; Start 06/27/18 at 13:30; Stop 06/27/18 at 13:31; Status DC Aspirin (Ecotrin) 81 mg DAILY PO Last administered on 06/28/18at 09:00; Start at 09:00 Bupropion HCl (Wellbutrin Sr) 150 mg BID PO Last administered on 06/27/18at 22: 13; Start 06/27/18 at 21:00 Insulin Glargine (Lantus) 40 units QHS SQ Last administered on 06/27/18at 22:21 ; Start 06/27/18 at 21:00 Levothyroxine Sodium (Synthroid) 100 mcg DAILY06 PO Last administered on at 06:28; Start 06/28/18 at 06:00 Non-Formulary Medication (Albuterol Sulfate (Proventil Hfa Inhaler)) 2 puff PRN Q4HRS PRN IH FOR ASTHMA; Start 06/27/18 at 16:15; Status UNV Non-Formulary Medication (Amlodipine Besylate/ Benazepril (Lotrel 5-20 Mg Capsule)) 1 cap DAILY PO ; Start 06/28/18 at 09:00; Status UNV Non-Formulary Medication (Fluticasone/ Salmeterol (Advair 100-50 Diskus)) 1 puff BID IH ; Start 06/27/18 at 21:00; Status UNV Niacin (Slo-Niacin) 1,000 mg QHS PO Last administered on 06/27/18at 22:13; Start 06/27/18 at 21:00 Sertraline HCl (Zoloft) 200 mg DAILY PO ; Start 06/28/18 at 09:00 Atorvastatin Calcium (Lipitor) 40 mg QHS PO Last administered on 06/27/18at 22: 13; Start 06/27/18 at 21:00 Non-Formulary Medication (Ubidecarenone (Coq-10)) 100 mg HS PO ; Start 06/27/18 at 21:00; Status UNV Insulin Human Lispro (HumaLOG) 0-9 UNITS TIDWMEALS SQ Last administered on 06/27at 17:30; Start 06/27/18 at 17:00 Dextrose (Dextrose 50%-Water Syringe) 12.5 gm PRN Q15MIN PRN IV SEE COMMENTS; Start 06/27/18 at 16:15 Acetaminophen/ Hydrocodone Bitart (Lortab 7.5/325) 1 tab PRN Q6HRS PRN PO SEVERE PAIN Last administered on 06/28/18at 10:23; Start 06/27/18 at 16:15 Albuterol Sulfate (Ventolin Neb Soln) 2.5 mg PRN Q4HRS PRN NEB SHORTNESS OF BREATH; Start 06/27/18 at 16:30 Albuterol Sulfate (Ventolin Neb Soln) 2.5 mg RTQID NEB Last administered on at 12:07; Start 06/27/18 at 16:30 Budesonide (Pulmicort) 0.5 mg RTBID NEB Last administered on 06/28/18at 07:22; Start 06/27/18 at 20:00 Amlodipine Besylate (Norvasc) 5 mg DAILY PO Last administered on 06/27/18at 17: 22; Start 06/27/18 at 17:00 Lisinopril (Prinivil) 20 mg DAILY PO Last administered on 06/27/18at 17:23; Start 06/27/18 at 17:00 Acetaminophen (Tylenol) 650 mg PRN Q6HRS PRN PO FEVER; Start 06/27/18 at 16:45 Ondansetron HCl (Zofran) 4 mg PRN Q6HRS PRN IV NAUSEA/VOMITING; Start 06/27/18 at 16:45 Tramadol HCl (Ultram) 50 mg PRN Q6HRS PRN PO MILD TO MODERATE PAIN; Start 06/27 at 16:45 Hydralazine HCl (Apresoline Inj) 10 mg PRN Q4HRS PRN IVP ELEVATED BP, SEE COMMENTS; Start 06/27/18 at 16:45 Docusate Sodium (Colace) 100 mg PRN DAILY PRN PO CONSTIPATION; Start 06/27/18 at 16:45 Tramadol HCl (Ultram) 50 mg PRN Q6HRS PRN PO MILD TO MODERATE PAIN; Start 06/28 at 10:30; Stop 06/28/18 at 15:20; Status DC Active Scripts Active Reported Coq-10 (Ubidecarenone) 100 Mg Capsule 100 Mg PO HS Wellbutrin Sr (Bupropion Hcl) 150 Mg Tablet.er 1 Tab PO BID Aspirin Ec (Aspirin) 81 Mg Tablet.dr 1 Tab PO DAILY Fish Oil Conc 1,000 mg Softgel (Apex-3/Dha/Epa/Fish Oil) 1,000 Mg Capsule 4, 000 Mg PO Proventil Hfa Inhaler (Albuterol Sulfate) 6.7 Gm Hfa.aer.ad 2 Puff IH PRN Q4HRS PRN Advair 100-50 Diskus (Fluticasone/Salmeterol) 1 Each Disk.w.dev 1 Puff IH BID Niaspan (Niacin) 1,000 Mg Tab.er.24h 1 Tab PO QHS Levothyroxine Sodium 100 Mcg Tablet 1 Tab PO DAILY Lotrel 5-20 Mg Capsule (Amlodipine Besylate/Benazepril) 1 Each Capsule 1 Cap PO DAILY Zoloft (Sertraline Hcl) 100 Mg Tablet 2 Tab PO DAILY Simvastatin 80 Mg Tablet 80 Mg PO HS Lantus Solostar (Insulin Glargine,Hum.rec.anlog) 100 Unit/1 Ml Insuln.pen 65 Unit SQ QHS Allergies Allergies: Coded Allergies: amoxicillin (Verified Allergy, Unknown, 06/27/18) clavulanic acid (Verified Allergy, Unknown, 06/27/18) codeine (Verified Adverse Reaction, Intermediate, "SICK", 06/28/18) Physical Exam General: Alert, Oriented X3, Cooperative, No acute distress HEENT: Atraumatic, EOMI Lungs: Normal air movement Heart: Regular rate Abdomen: Soft Extremities: Normal pulses Skin: No rashes, No breakdown, No significant lesion Neuro: Normal speech, Sensation intact Psych/Mental Status: Mental status NL, Mood NL MUSCULOSKELETAL: Other (Left shoulder sling in place. Skin is intact over the left shoulder. Ecchymosis noted along upper arm from shoulder to elbow. There is tenderness to palpation of the shoulder, specifically over the greater tuberosity. Limited range of motion of shoulder due to pain. Contact Lens Molder strength intact. Motor and sensory function intact in axillary, radial, median, and ulnar nerve distributions. Peripheral pulses and light touch sensation intact.) Vitals VITALS Vital Signs Date Time Temp Pulse Resp B/P (MAP) Pulse Ox O2 Delivery O2 Flow Rate FiO2 06/28/18 12:18 Room Air 06/28/18 12:08 92 06/28/18 11:00 98.3 87 18 128/61 (83) 98.3 Labs Labs Laboratory Tests Test 06/27/18 09:06 06/27/18 09:26 06/27/18 10:05 06/27/18 17:20 Glucose (Fingerstick) 115 mg/dL (70-99) 157 mg/dL (70-99) Urine Collection Type Unknown Urine Color Yellow Urine Clarity Clear Urine pH 8.0 Urine Specific [place] 1.020 Urine Protein Negative mg/dL (NEG-TRACE) Urine Glucose (UA) Negative mg/dL (NEG) Urine Ketones (Stick) Negative mg/dL (NEG) Urine Blood Negative (NEG) Urine Nitrite Negative (NEG) Urine Bilirubin Negative (NEG) Urine Urobilinogen Dipstick 1.0 mg/dL (0.2 mg/dL) Urine Leukocyte Esterase Small (NEG) Urine RBC 0 /HPF (0-2) Urine WBC 5-10 /HPF (0-4) Urine Squamous Epithelial Cells Occ /LPF Urine Transitional Epithelial Cells Occ /LPF Urine Renal Epithelial Cells Occ /LPF Urine Bacteria Few /HPF (0-FEW) Urine Mucus Slight /LPF White Blood Count 10.6 x10^3/uL (4.0-11.0) Red Blood Count 4.37 x10^6/uL (3.50-5.40) Hemoglobin 13.4 g/dL (12.0-15.5) Hematocrit 38.8 % (36.0-47.0) Mean Corpuscular Volume 89 fL (79-100) Mean Corpuscular Hemoglobin 31 pg (25-35) Mean Corpuscular Hemoglobin Concent 35 g/dL (31-37) Red Cell Distribution Width 13.7 % (11.5-14.5) Platelet Count 273 x10^3/uL (140-400) Neutrophils (%) (Auto) 83 % (31-73) Lymphocytes (%) (Auto) 10 % (24-48) Monocytes (%) (Auto) 5 % (0-9) Eosinophils (%) (Auto) 2 % (0-3) Basophils (%) (Auto) 1 % (0-3) Neutrophils # (Auto) 8.8 x10^3uL (1.8-7.7) Lymphocytes # (Auto) 1.0 x10^3/uL (1.0-4.8) Monocytes # (Auto) 0.5 x10^3/uL (0.0-1.1) Eosinophils # (Auto) 0.2 x10^3/uL (0.0-0.7) Basophils # (Auto) 0.1 x10^3/uL (0.0-0.2) Sodium Level 143 mmol/L (136-145) Potassium Level 3.7 mmol/L (3.5-5.1) Chloride Level 107 mmol/L (98-107) Carbon Dioxide Level 27 mmol/L (21-32) Anion Gap 9 (6-14) Blood Urea Nitrogen 12 mg/dL (7-20) Creatinine 0.9 mg/dL (0.6-1.0) Estimated GFR (Cockcroft-Gault) 61.9 Glucose Level 124 mg/dL (70-99) Calcium Level 8.8 mg/dL (8.5-10.1) Magnesium Level 1.8 mg/dL (1.8-2.4) Creatine Kinase 226 U/L (26-192) Creatine Kinase MB (Mass) 3.3 ng/mL (0.0-3.6) Creatine Kinase MB Relative Index 1.5 % (0-4) Troponin I Quantitative < 0.017 ng/mL (0.000-0.055) Test 06/27/18 20:48 06/28/18 03:45 06/28/18 07:53 06/28/18 11:55 Glucose (Fingerstick) 202 mg/dL (70-99) 165 mg/dL (70-99) 132 mg/dL (70-99) White Blood Count 9.0 x10^3/uL (4.0-11.0) Red Blood Count 4.15 x10^6/uL (3.50-5.40) Hemoglobin 12.8 g/dL (12.0-15.5) Hematocrit 36.9 % (36.0-47.0) Mean Corpuscular Volume 89 fL (79-100) Mean Corpuscular Hemoglobin 31 pg (25-35) Mean Corpuscular Hemoglobin Concent 35 g/dL (31-37) Red Cell Distribution Width 13.6 % (11.5-14.5) Platelet Count 237 x10^3/uL (140-400) Neutrophils (%) (Auto) 69 % (31-73) Lymphocytes (%) (Auto) 19 % (24-48) Monocytes (%) (Auto) 10 % (0-9) Eosinophils (%) (Auto) 1 % (0-3) Basophils (%) (Auto) 1 % (0-3) Neutrophils # (Auto) 6.3 x10^3uL (1.8-7.7) Lymphocytes # (Auto) 1.7 x10^3/uL (1.0-4.8) Monocytes # (Auto) 0.9 x10^3/uL (0.0-1.1) Eosinophils # (Auto) 0.1 x10^3/uL (0.0-0.7) Basophils # (Auto) 0.1 x10^3/uL (0.0-0.2) Sodium Level 139 mmol/L (136-145) Potassium Level 3.6 mmol/L (3.5-5.1) Chloride Level 106 mmol/L (98-107) Carbon Dioxide Level 26 mmol/L (21-32) Anion Gap 7 (6-14) Blood Urea Nitrogen 14 mg/dL (7-20) Creatinine 0.7 mg/dL (0.6-1.0) Estimated GFR (Cockcroft-Gault) 82.7 Glucose Level 149 mg/dL (70-99) Calcium Level 8.8 mg/dL (8.5-10.1) Vitamin B12 Level 495 pg/mL (247-911) 25-Hydroxy Vitamin D Total 23.0 ng/mL (30-100) Thyroid Stimulating Hormone (TSH) 1.865 uIU/mL (0.358-3.74) Free Thyroxine 0.81 ng/dL (0.76-1.46) Free Triiodothyronine (T3) pg/mL 2.11 pg/mL (2.18-3.98) Laboratory Tests Test 06/27/18 17:20 06/27/18 20:48 06/28/18 03:45 06/28/18 07:53 Glucose (Fingerstick) 157 mg/dL (70-99) 202 mg/dL (70-99) 165 mg/dL (70-99) White Blood Count 9.0 x10^3/uL (4.0-11.0) Red Blood Count 4.15 x10^6/uL (3.50-5.40) Hemoglobin 12.8 g/dL (12.0-15.5) Hematocrit 36.9 % (36.0-47.0) Mean Corpuscular Volume 89 fL (79-100) Mean Corpuscular Hemoglobin 31 pg (25-35) Mean Corpuscular Hemoglobin Concent 35 g/dL (31-37) Red Cell Distribution Width 13.6 % (11.5-14.5) Platelet Count 237 x10^3/uL (140-400) Neutrophils (%) (Auto) 69 % (31-73) Lymphocytes (%) (Auto) 19 % (24-48) Monocytes (%) (Auto) 10 % (0-9) Eosinophils (%) (Auto) 1 % (0-3) Basophils (%) (Auto) 1 % (0-3) Neutrophils # (Auto) 6.3 x10^3uL (1.8-7.7) Lymphocytes # (Auto) 1.7 x10^3/uL (1.0-4.8) Monocytes # (Auto) 0.9 x10^3/uL (0.0-1.1) Eosinophils # (Auto) 0.1 x10^3/uL (0.0-0.7) Basophils # (Auto) 0.1 x10^3/uL (0.0-0.2) Sodium Level 139 mmol/L (136-145) Potassium Level 3.6 mmol/L (3.5-5.1) Chloride Level 106 mmol/L (98-107) Carbon Dioxide Level 26 mmol/L (21-32) Anion Gap 7 (6-14) Blood Urea Nitrogen 14 mg/dL (7-20) Creatinine 0.7 mg/dL (0.6-1.0) Estimated GFR (Cockcroft-Gault) 82.7 Glucose Level 149 mg/dL (70-99) Calcium Level 8.8 mg/dL (8.5-10.1) Vitamin B12 Level 495 pg/mL (247-911) 25-Hydroxy Vitamin D Total 23.0 ng/mL (30-100) Thyroid Stimulating Hormone (TSH) 1.865 uIU/mL (0.358-3.74) Free Thyroxine 0.81 ng/dL (0.76-1.46) Free Triiodothyronine (T3) pg/mL 2.11 pg/mL (2.18-3.98) Test 06/28/18 11:55 Glucose (Fingerstick) 132 mg/dL (70-99) Images Images Left shoulder images and report reviewed. Left shoulder, 2 views, 06/27/2018: HISTORY: Fall There is a fracture of the proximal left humerus involving the neck and head with moderate impaction at the fracture site. There are mild underlying degenerative changes at the shoulder. IMPRESSION: Acute proximal humeral fracture. Left elbow, 3 views, 06/27/2018: An AP view was not obtained, presumably due to difficulties in patient positioning relative to the proximal humeral fracture. No elbow fracture or joint effusion is evident on this limited exam. Assessment/Plan Assessment/Plan Left proximal humerus fracture. The patient is a 72 year old female with unexplained dizziness causing her to fall on her left side yesterday. She has a left proximal humerus fracture. Radiographically and clinically, her rotator cuff is likely not intact so she may be a candidate for a reverse total shoulder for fracture. Dr. Gusman discussed the case with Dr. Garcia who recommended she followup outpatient in her clinic. Continue the arm sling and ice to the left shoulder. Followup with Dr. Garcia on Thursday06/29/18 at 1:30pm. AVANI ALLEN Jun 28, 2018 17:06
[2018-06-28 17:13] LABS: BARBITURATES NEG (NEG); BENZODIAZEPINES NEG (NEG); CANNABINOIDS NEG (NEG); COCAINE NEG (NEG); METHADONE NEG (NEG); OPIATES POS (NEG); PHENCYCLIDINE NEG (NEG)
[2018-06-28 17:29] LABS: AMPHETAMINE/METHAMPHETAMINE NEG (NEG)
--- NOTE | 2018-06-28 17:51 | CARD ---
MR#: [id number] Date of Study: 06/28/2018 Ordering Physician: IRMA MOODY, Referring Physician: RAUL SALINAS Tech: Beverly Lehman APPROVED REPORT EXAM: Two-dimensional and M-mode echocardiogram with Doppler and color Doppler. Other Information Quality : Fair INDICATION Dyspnea 2D DIMENSIONS Left Atrium(2D)3.1 (1.6-4.0cm)IVSd1.2 (0.7-1.1cm) Aortic Root(2D)3.0 (2.0-3.7cm)LVDd4.8 (3.9-5.9cm) LVOT Diameter2.1 (1.8-2.4cm)PWd1.0 (0.7-1.1cm) LVDs2.6 (2.5-4.0cm)FS (%) 45.5 % SV81.3 mlLVEF(%)76.8 (>50%) M-Mode DIMENSIONS Left Atrium(MM)3.10 (2.5-4.0cm)Aortic Root3.00 (2.2-3.7cm) Aortic Valve AoV Peak Geronimo.144.5cm/sAoV VTI23.0cm AO Peak GR.8.4mmHgLVOT Peak Geronimo.116.3cm/s AO Mean GR.4mmHgAVA (VMAX)2.71cm2 ZION (VTI)3.50cm2 Mitral Valve MV E Sbobpnxt26.3cm/sMV DECEL DCHV075gb MV A Kywpinxi628.0cm/sE/A Ratio0.9 Tricuspid Valve TR P. [id number]/sRAP [id number] TR Peak Gr.[id number] Pulmonary Vein PVa [id number] LEFT VENTRICLE The left ventricle is normal size. There is borderline concentric left ventricular hypertrophy. The l eft ventricular systolic function is normal. The ejection fraction is estimated at 65%. There is norm al LV segmental wall motion. RIGHT VENTRICLE The right ventricle is normal size. There is normal right ventricular wall thickness. The right ventr icular systolic function is normal. ATRIA The left atrium size is normal. The right atrium size is normal. The interatrial septum is intact wit h no evidence for an atrial septal defect or patent foramen ovale as noted on 2-D or Doppler imaging. AORTIC VALVE The aortic valve is not well visualized. Doppler and Color Flow revealed no significant aortic regurg itation. There is no significant aortic valvular stenosis. MITRAL VALVE The mitral valve is normal in structure and function. There is no mitral valve stenosis. Doppler and Color-flow revealed trace mitral regurgitation. TRICUSPID VALVE The tricuspid valve is normal in structure and function. Doppler and Color Flow revealed trace tricus pid regurgitation. There is no tricuspid valve stenosis. PULMONIC VALVE The pulmonary valve is normal in structure and function. Doppler and Color Flow revealed no pulmonic valvular regurgitation. GREAT VESSELS The aortic root is normal in size. The IVC is normal in size and collapses >50% with inspiration. PERICARDIAL EFFUSION There is no evidence of significant pericardial effusion. Critical Notification Critical Value: No <Conclusion> The left ventricular systolic function is normal. The ejection fraction is estimated at 65%. There is normal LV segmental wall motion. Trace mitral regurgitation. Trace tricuspid regurgitation. There is no evidence of significant pericardial effusion. Signed by : Asim Farley, Electronically Approved : 06/28/2018 17:49:17
[2018-06-28 19:00] VITALS: BP 157/66
[2018-06-28] MEDS: NIACIN ER 500 MG TABLET.ER PO SCH (20:47)
[2018-06-28] MEDS: ATORVASTATIN CALCIUM 40 MG TABLET. PO SCH (20:47)
[2018-06-28] MEDS: traMADol 50 MG TABLET PO PRN (20:51)
[2018-06-28] MEDS: INSULIN GLARGINE 300 UNITS/3 ML INSULN.PEN. SQ SCH (20:51)
[2018-06-28 23:00] VITALS: BP 140/68
[2018-06-29 03:00] VITALS: BP 147/76
[2018-06-29 04:20] LABS: BASO # 0.1 x10^3/uL (0.0-0.2); BASO % 1 % (0-3); EOS # 0.2 x10^3/uL (0.0-0.7); EOS % 2 % (0-3); HEMATOCRIT 38.5 % (36.0-47.0); HEMOGLOBIN 13.2 g/dL (12.0-15.5); LYMPH # 2.1 x10^3/uL (1.0-4.8); LYMPH % 21 % (24-48); MEAN CORPUSCULAR HEMOGLOBIN 31 pg (25-35); MEAN CORPUSCULAR HGB CONC 34 g/dL (31-37); MEAN CORPUSCULAR VOLUME 90 fL (79-100); MONO # 0.9 x10^3/uL (0.0-1.1); MONO % 9 % (0-9); NEUT # 6.9 x10^3uL (1.8-7.7); NEUT % 68 % (31-73); PLATELET COUNT 238 x10^3/uL (140-400); RED BLOOD COUNT 4.29 x10^6/uL (3.50-5.40); RED CELL DISTRIBUTION WIDTH 13.6 % (11.5-14.5)
[2018-06-29 04:34] LABS: CALCIUM 8.9 mg/dL (8.5-10.1); CREATININE 0.7 mg/dL (0.6-1.0); GFR 82.7; POTASSIUM 3.6 mmol/L (3.5-5.1)
[2018-06-29] MEDS: LEVOTHYROXINE 100 MCG TABLET PO SCH (06:28)
[2018-06-29 07:00] VITALS: BP 160/77
[2018-06-29] MEDS: ALBUTEROL SULFATE 2.5 MG/3 ML NEBU. NEB SCH ×2 (07:45→11:29)
[2018-06-29] MEDS: BUDESONIDE 0.5 MG/2 ML NEBU. NEB SCH (07:45)
[2018-06-29] MEDS: ASPIRIN ENTERIC COATED 81 MG TABLET.DR. PO SCH (08:18)
[2018-06-29] MEDS: buPROPion SR 150 MG TABLET.SA PO SCH (08:18)
[2018-06-29] MEDS: HYDROcodone/APAP 7.5/325MG 1 TAB TABLET PO PRN (08:18)
[2018-06-29] MEDS: amLODIPine BESYLATE 5 MG TABLET PO SCH (08:21)
[2018-06-29 08:22] VITALS: BP 166/91
[2018-06-29] MEDS: SERTRALINE 50 MG TABLET. PO SCH (08:22)
[2018-06-29] MEDS: LISINOPRIL 20 MG TABLET PO SCH (08:22)
[2018-06-29] MEDS: INSULIN LISPRO 300 UNITS/3 ML INSULN.PEN. SQ SCH (08:30)
--- NOTE | 2018-06-29 11:56 | PDOC3 ---
Discharge Summary Visit Information Date of Admission: Jun 27, 2018 Date of Discharge: Jun 29, 2018 Admitting Diagnosis Comment: left humerus traumatic fx post fall Persistent dizziness causing multiple falls today and in the past-prev neuro and cardiac workup in the distant past negative Need to rule out orthostatic hypotension LIkely autonomic instability in a long time diabetic unsteady gait htn dm2 hypothyroidism on synthroid Final Diagnosis Problems Medical Problems: (1) Contusion of left shoulder Status: Acute (2) Fall from standing Status: Acute (3) Humerus head fracture Status: Acute (4) Left elbow contusion Status: Acute Brief Hospital Course Allergies Allergies Coded Allergies Type Severity Reaction Last Updated Verified amoxicillin Allergy Unknown 06/27/18 Yes clavulanic acid Allergy Unknown 06/27/18 Yes codeine Adverse Reaction Intermediate "SICK" 06/28/18 Yes Vital Signs Vital Signs Date Time Temp Pulse Resp B/P (MAP) Pulse Ox O2 Delivery O2 Flow Rate FiO2 06/29/18 11:29 Room Air 06/29/18 08:22 85 166/91 06/29/18 07:00 98.7 18 94 98.7 Lab Results Laboratory Tests Test 06/27/18 17:20 06/27/18 20:48 06/28/18 03:45 06/28/18 07:53 Glucose (Fingerstick) 157 mg/dL (70-99) 202 mg/dL (70-99) 165 mg/dL (70-99) White Blood Count 9.0 x10^3/uL (4.0-11.0) Red Blood Count 4.15 x10^6/uL (3.50-5.40) Hemoglobin 12.8 g/dL (12.0-15.5) Hematocrit 36.9 % (36.0-47.0) Mean Corpuscular Volume 89 fL (79-100) Mean Corpuscular Hemoglobin 31 pg (25-35) Mean Corpuscular Hemoglobin Concent 35 g/dL (31-37) Red Cell Distribution Width 13.6 % (11.5-14.5) Platelet Count 237 x10^3/uL (140-400) Neutrophils (%) (Auto) 69 % (31-73) Lymphocytes (%) (Auto) 19 % (24-48) Monocytes (%) (Auto) 10 % (0-9) Eosinophils (%) (Auto) 1 % (0-3) Basophils (%) (Auto) 1 % (0-3) Neutrophils # (Auto) 6.3 x10^3uL (1.8-7.7) Lymphocytes # (Auto) 1.7 x10^3/uL (1.0-4.8) Monocytes # (Auto) 0.9 x10^3/uL (0.0-1.1) Eosinophils # (Auto) 0.1 x10^3/uL (0.0-0.7) Basophils # (Auto) 0.1 x10^3/uL (0.0-0.2) Sodium Level 139 mmol/L (136-145) Potassium Level 3.6 mmol/L (3.5-5.1) Chloride Level 106 mmol/L (98-107) Carbon Dioxide Level 26 mmol/L (21-32) Anion Gap 7 (6-14) Blood Urea Nitrogen 14 mg/dL (7-20) Creatinine 0.7 mg/dL (0.6-1.0) Estimated GFR (Cockcroft-Gault) 82.7 Glucose Level 149 mg/dL (70-99) Calcium Level 8.8 mg/dL (8.5-10.1) Vitamin B12 Level 495 pg/mL (247-911) 25-Hydroxy Vitamin D Total 23.0 ng/mL (30-100) Thyroid Stimulating Hormone (TSH) 1.865 uIU/mL (0.358-3.74) Free Thyroxine 0.81 ng/dL (0.76-1.46) Free Triiodothyronine (T3) pg/mL 2.11 pg/mL (2.18-3.98) Test 06/28/18 11:55 06/28/18 16:45 06/28/18 16:52 06/28/18 20:23 Glucose (Fingerstick) 132 mg/dL (70-99) 156 mg/dL (70-99) 155 mg/dL (70-99) Urine Opiates Screen Pos (NEG) Urine Methadone Screen Neg (NEG) Urine Barbiturates Neg (NEG) Urine Phencyclidine Screen Neg (NEG) Urine Amphetamine/Methamphetamine Neg (NEG) Urine Benzodiazepines Screen Neg (NEG) Urine Cocaine Screen Neg (NEG) Urine Cannabinoids Screen Neg (NEG) Urine Ethyl Alcohol Neg (NEG) Test 8/14/18 03:55 06/29/18 07:56 White Blood Count 10.0 x10^3/uL (4.0-11.0) Red Blood Count 4.29 x10^6/uL (3.50-5.40) Hemoglobin 13.2 g/dL (12.0-15.5) Hematocrit 38.5 % (36.0-47.0) Mean Corpuscular Volume 90 fL (79-100) Mean Corpuscular Hemoglobin 31 pg (25-35) Mean Corpuscular Hemoglobin Concent 34 g/dL (31-37) Red Cell Distribution Width 13.6 % (11.5-14.5) Platelet Count 238 x10^3/uL (140-400) Neutrophils (%) (Auto) 68 % (31-73) Lymphocytes (%) (Auto) 21 % (24-48) Monocytes (%) (Auto) 9 % (0-9) Eosinophils (%) (Auto) 2 % (0-3) Basophils (%) (Auto) 1 % (0-3) Neutrophils # (Auto) 6.9 x10^3uL (1.8-7.7) Lymphocytes # (Auto) 2.1 x10^3/uL (1.0-4.8) Monocytes # (Auto) 0.9 x10^3/uL (0.0-1.1) Eosinophils # (Auto) 0.2 x10^3/uL (0.0-0.7) Basophils # (Auto) 0.1 x10^3/uL (0.0-0.2) Sodium Level 139 mmol/L (136-145) Potassium Level 3.6 mmol/L (3.5-5.1) Chloride Level 104 mmol/L (98-107) Carbon Dioxide Level 28 mmol/L (21-32) Anion Gap 7 (6-14) Blood Urea Nitrogen 11 mg/dL (7-20) Creatinine 0.7 mg/dL (0.6-1.0) Estimated GFR (Cockcroft-Gault) 82.7 Glucose Level 151 mg/dL (70-99) Calcium Level 8.9 mg/dL (8.5-10.1) Glucose (Fingerstick) 152 mg/dL (70-99) Laboratory Tests Test 06/28/18 11:55 06/28/18 16:45 06/28/18 16:52 06/28/18 20:23 Glucose (Fingerstick) 132 mg/dL (70-99) 156 mg/dL (70-99) 155 mg/dL (70-99) Urine Opiates Screen Pos (NEG) Urine Methadone Screen Neg (NEG) Urine Barbiturates Neg (NEG) Urine Phencyclidine Screen Neg (NEG) Urine Amphetamine/Methamphetamine Neg (NEG) Urine Benzodiazepines Screen Neg (NEG) Urine Cocaine Screen Neg (NEG) Urine Cannabinoids Screen Neg (NEG) Urine Ethyl Alcohol Neg (NEG) Test 06/29/18 03:55 06/29/18 07:56 White Blood Count 10.0 x10^3/uL (4.0-11.0) Red Blood Count 4.29 x10^6/uL (3.50-5.40) Hemoglobin 13.2 g/dL (12.0-15.5) Hematocrit 38.5 % (36.0-47.0) Mean Corpuscular Volume 90 fL (79-100) Mean Corpuscular Hemoglobin 31 pg (25-35) Mean Corpuscular Hemoglobin Concent 34 g/dL (31-37) Red Cell Distribution Width 13.6 % (11.5-14.5) Platelet Count 238 x10^3/uL (140-400) Neutrophils (%) (Auto) 68 % (31-73) Lymphocytes (%) (Auto) 21 % (24-48) Monocytes (%) (Auto) 9 % (0-9) Eosinophils (%) (Auto) 2 % (0-3) Basophils (%) (Auto) 1 % (0-3) Neutrophils # (Auto) 6.9 x10^3uL (1.8-7.7) Lymphocytes # (Auto) 2.1 x10^3/uL (1.0-4.8) Monocytes # (Auto) 0.9 x10^3/uL (0.0-1.1) Eosinophils # (Auto) 0.2 x10^3/uL (0.0-0.7) Basophils # (Auto) 0.1 x10^3/uL (0.0-0.2) Sodium Level 139 mmol/L (136-145) Potassium Level 3.6 mmol/L (3.5-5.1) Chloride Level 104 mmol/L (98-107) Carbon Dioxide Level 28 mmol/L (21-32) Anion Gap 7 (6-14) Blood Urea Nitrogen 11 mg/dL (7-20) Creatinine 0.7 mg/dL (0.6-1.0) Estimated GFR (Cockcroft-Gault) 82.7 Glucose Level 151 mg/dL (70-99) Calcium Level 8.9 mg/dL (8.5-10.1) Glucose (Fingerstick) 152 mg/dL (70-99) Brief Hospital Course Ms. Dumont is a 72 old a pleasant female who had dizziness prior to falling. History of multiple falls recently because of persistent dizziness. Has extensive cardiac and neuro workup in the past that was negative. Orthostatics checked here twice negative. MRI of the brain negative, echo, carotids negative. Rest of the lab work is negative. PT seen patient, patient is very good family support. Seen by orthopedics for the humeral fracture. Patient has a follow-up with her own orthopedics, Dr. Garcia later today at 1 :30 and one and half hours time. Rx for Lortab given. Okay to be discharged today and follow-up with Dr. Garcia her orthopedics No new medications, looks better on day of discharge. Patient seen and examined, as cussed with RN and family members at bedside Discharge Information Condition at Discharge: Improved, Stable Follow Up: Weeks (jamar ortho today) Disposition/Orders: D/C to Home Scheduled Amlodipine Besylate/Benazepril (Lotrel 5-20 Mg Capsule) 1 Each Capsule, 1 CAP PO DAILY, #30 Ref 5 (Reported) Entered as Reported by: LORY COREA on 06/27/181338 Last Action: Converted on 06/27/181611 by RAUL SALINAS MD Aspirin (Aspirin Ec) 81 Mg Tablet.dr, 1 TAB PO DAILY, #30 Ref 3 (Reported) Entered as Reported by: LORY COREA on 06/27/181338 Last Action: Continued on 06/27/181611 by RAUL SALINAS MD Bupropion Hcl (Wellbutrin Sr) 150 Mg Tablet.er, 1 TAB PO BID, #60 Ref 5 ( Reported) Entered as Reported by: LORY COREA on 06/27/181338 Last Action: Continued on 06/27/181611 by RAUL SALINAS MD Fluticasone/Salmeterol (Advair 100-50 Diskus) 1 Each Disk.w.dev, 1 PUFF IH BID, #1 Ref 5 (Reported) Entered as Reported by: LORY COREA on 06/27/181338 Last Action: Converted on 06/27/181611 by RAUL SALINAS MD Insulin Glargine,Hum.rec.anlog (Lantus Solostar) 100 Unit/1 Ml Insuln.pen, 65 UNIT SQ QHS, #15 Ref 3 (Reported) Entered as Reported by: LORY COREA on 06/27/181338 Last Action: Continued on 06/27/181611 by RAUL SALINAS MD Levothyroxine Sodium (Levothyroxine Sodium) 100 Mcg Tablet, 1 TAB PO DAILY, #30 Ref 5 (Reported) Entered as Reported by: LORY COREA on 06/27/181338 Last Action: Continued on 06/27/181611 by RAUL SALINAS MD Niacin (Niaspan) 1,000 Mg Tab.er.24h, 1 TAB PO QHS, #30 Ref 5 (Reported) Entered as Reported by: LORY COREA on 06/27/181338 Last Action: Converted on 06/27/181611 by RAUL SALINAS MD Sertraline Hcl (Zoloft) 100 Mg Tablet, 2 TAB PO DAILY, #30 Ref 2 (Reported) Entered as Reported by: LORY COREA on 06/27/181338 Last Action: Converted on 06/27/181611 by RAUL SALINAS MD Simvastatin (Simvastatin) 80 Mg Tablet, 80 MG PO HS for FOR CHOLESTEROL, #30 Ref 0 (Reported) Entered as Reported by: LORY COREA on 06/27/181338 Last Action: Converted on 06/27/181611 by RAUL SALINAS MD Ubidecarenone (Coq-10) 100 Mg Capsule, 100 MG PO HS, (Reported) Entered as Reported by: LORY COREA on 06/27/181338 Last Action: Converted on 06/27/181611 by RAUL SALINAS MD Scheduled PRN Albuterol Sulfate (Proventil Hfa Inhaler) 6.7 Gm Hfa.aer.ad, 2 PUFF IH PRN Q4HRS PRN for FOR ASTHMA, Ref 0 (Reported) Entered as Reported by: LORY COREA on 06/27/181338 Last Action: Converted on 06/27/181611 by RAUL SALINAS MD Miscellaneous Medications [place]-3/Dha/Epa/Fish Oil (Fish Oil Conc 1,000 mg Softgel) 1,000 Mg Capsule, 4, 000 MG PO, (Reported) Entered as Reported by: LORY COREA on 06/27/181338 Last Action: HELD on 06/27/181611 by MD HEIDY WETZEL CHERRIE Y MD Jun 29, 2018 11:56
[2018-06-29] MEDS ORDERED: CALCIUM CARBONATE 500 MG TABLET PO SCH (12:00)
[2018-06-29] MEDS ORDERED: CHOLECALCIFEROL (VITAMIN D3) 1,000 UNIT TABLET PO SCH (12:00)
[2018-06-29] MEDS: traMADol 50 MG TABLET PO PRN (12:31)
--- NOTE | 2018-06-29 19:32 | PDOC ---
PROGRESS NOTES Assessment Assessment Left acute proximal humeral fracture from falling. Falls. Dizziness. Light headiness x 2 weeks. DM. HTN. HLD. Vit D deficiency. Obesity. No evidence of acute CVA this time. RECOMMENDATIONS/PLAN: Treat medical diseases. Vit D supplement. Weight reduction. FU with Ortho. FU with PCP. Discussed with her at bedside again on 06/29/18. HISTORY OF THE PRESENT ILLNESS: 72-y-old female patient with above medicla diseases has been having symptoms of light headiness for about 2 weeks. She also has symptoms of dizziness for about 2 weeks as well. She had a fall at home which resulted in her left side humeral fracture. She denied seizure. Past Medical History Cardiovascular: HTN Endocrine: Diabetes Past Surgical History No major surgery recently. Family History Hypertension Social History Smoke: No ALCOHOL: none Drugs: None ALLERGY: Reviewed. MEDICATIONS: Refer to MAR REVIEW OF SYSTEMS: Constitutional: Obesity. Head: No traumatic brain or head injury. Skin: No edema, or rash. Ear: No infection. Eyes: No vision loss or color blindness. Nose: No bleeding or purulent discharges. Hearing: Hearing decrease. Neck: No injury. Breast: No history of cancer, masses,or discharges. Cardiac: HTN, HLD. Pulmonary: No COPD. GI: No GI ulcer, GI bleeding. Urinary/genital: UTI. Endocrinologic: Diabetes Mellitus, obesity. Skeletomuscular: No muscular atrophy, deformity. Neurological: see HP. Psychiatric: Denies drug use/abuse. Otherwise, not [id number] review of systems. PHYSICAL EXAMINATION: General appearance is in subacute distress. HEENT: Normocephalic and nontraumatic. Eyes, nose, ears, and throat are unremarkable. Neck is supple. No lymphadenopathy. No bruits are heard over the carotid artery. No crepitus. Cardiovascular: S1, S2, regular rate and rhythm. Pulmonary: Clear to auscultation bilaterally. Abdomen: Bowel sounds are positive. Abdomen is soft, nontender, and nondistended. Extremities: No rash, lesions, or edema. No restriction of range of motion NEUROLOGICAL EXAMINATION: Alert Oriented to time, place and person, but reaction was slow. PERRL. EOMI. Horizontal nystagmus elicited bilaterally. CN: no focal findings. Muscle tone: within normal. Muscle strength: 4+ DTR: 1-2 Plantar reflex: Flexor response bilaterally Gait: At her baseline normal. Sensory exam: no abnormal findings. No acute cerebellar signs elicited. F-T-N test fine on right side. Objective Objective Vital Signs Date Time Temp Pulse Resp B/P (MAP) Pulse Ox O2 Delivery O2 Flow Rate FiO2 06/29/18 12:31 Room Air 06/29/18 08:22 85 166/91 06/29/18 07:00 98.7 18 94 98.7 Intake and Output 06/29/18 07:00 Intake Total 720 ml Balance 720 ml Intake Oral 720 ml # Voids 6 # Bowel Movements 1 Vitals Signs Vitals VS - Last 72 Hours, by Label Date Time Temp Pulse Resp B/P (MAP) Pulse Ox O2 Delivery O2 Flow Rate FiO2 06/29/18 12:31 Room Air 06/29/18 11:29 Room Air 06/29/18 08:22 85 166/91 06/29/18 08:21 85 166/91 06/29/18 08:20 Room Air 06/29/18 08:18 Room Air 06/29/18 07:46 Room Air 06/29/18 07:00 98.7 95 18 160/77 (104) 94 Room Air 98.7 06/29/18 03:00 98.6 79 18 147/76 (99) 96 Room Air 98.6 06/28/18 23:00 98.4 96 18 140/68 (92) 93 Room Air 98.4 06/28/18 21:51 Room Air 06/28/18 20:51 Room Air 06/28/18 20:00 Room Air 06/28/18 19:44 Room Air 06/28/18 19:17 Room Air 06/28/18 19:15 Room Air 06/28/18 19:00 99.3 96 18 157/66 (96) 92 Room Air 99.3 06/28/18 18:35 Room Air 06/28/18 15:00 98.7 91 18 138/66 (90) 94 Room Air 98.7 06/28/18 12:08 92 Room Air 06/28/18 11:00 98.3 87 18 128/61 (83) 93 Room Air 98.3 06/28/18 10:23 Room Air 06/28/18 07:50 Room Air 06/28/18 07:22 96 Room Air 06/28/18 07:00 98.4 91 18 109/54 (72) 95 Room Air 98.4 Laboratory Laboratory Laboratory Tests Test 06/28/18 20:23 06/29/18 03:55 06/29/18 07:56 Glucose (Fingerstick) 155 mg/dL (70-99) 152 mg/dL (70-99) White Blood Count 10.0 x10^3/uL (4.0-11.0) Red Blood Count 4.29 x10^6/uL (3.50-5.40) Hemoglobin 13.2 g/dL (12.0-15.5) Hematocrit 38.5 % (36.0-47.0) Mean Corpuscular Volume 90 fL (79-100) Mean Corpuscular Hemoglobin 31 pg (25-35) Mean Corpuscular Hemoglobin Concent 34 g/dL (31-37) Red Cell Distribution Width 13.6 % (11.5-14.5) Platelet Count 238 x10^3/uL (140-400) Neutrophils (%) (Auto) 68 % (31-73) Lymphocytes (%) (Auto) 21 % (24-48) Monocytes (%) (Auto) 9 % (0-9) Eosinophils (%) (Auto) 2 % (0-3) Basophils (%) (Auto) 1 % (0-3) Neutrophils # (Auto) 6.9 x10^3uL (1.8-7.7) Lymphocytes # (Auto) 2.1 x10^3/uL (1.0-4.8) Monocytes # (Auto) 0.9 x10^3/uL (0.0-1.1) Eosinophils # (Auto) 0.2 x10^3/uL (0.0-0.7) Basophils # (Auto) 0.1 x10^3/uL (0.0-0.2) Sodium Level 139 mmol/L (136-145) Potassium Level 3.6 mmol/L (3.5-5.1) Chloride Level 104 mmol/L (98-107) Carbon Dioxide Level 28 mmol/L (21-32) Anion Gap 7 (6-14) Blood Urea Nitrogen 11 mg/dL (7-20) Creatinine 0.7 mg/dL (0.6-1.0) Estimated GFR (Cockcroft-Gault) 82.7 Glucose Level 151 mg/dL (70-99) Calcium Level 8.9 mg/dL (8.5-10.1) Microbiology 06/27/18 Urine Culture - Final, Complete 06/27/18 Urine Culture Result 1 (BLESSING) - Final, Complete Medication Medications Current Medications Calcium Carbonate/ Glycine (Oscal) 500 mg DAILY PO ; Start 06/29/18 at 12:00; Stop 06/29/18 at 13:14; Status DC Vitamin D (Vitamin D3) 1,000 unit DAILY PO ; Start 06/29/18 at 12:00; Stop 06/29 at 13:14; Status DC Comment Review of Relevant I have reviewed the following items jammie (where applicable) has been applied. GRACIELA MERCADO MD Jun 29, 2018 19:32
== END 2018-06-29 12:33 | disposition home or self-care (01) | DRG 563 ==
LOC: ER 08:28 → 4 NORTH 11:08
PROVIDERS: ADMIT Internal Medicine; ATTEND Internal Medicine
DX: S42.202A Unspecified fracture of upper end of left humerus, initial encounter for closed fracture (principal); E03.9 Hypothyroidism, unspecified; E55.9 Vitamin D deficiency, unspecified; E66.9 Obesity, unspecified; E78.5 Hyperlipidemia, unspecified; I10 Essential (primary) hypertension; S50.02XA Contusion of left elbow, initial encounter; R29.6 Repeated falls; E11.40 Type 2 diabetes mellitus with diabetic neuropathy, unspecified; W18.39XA Other fall on same level, initial encounter; Y93.89 Activity, other specified; Y99.8 Other external cause status; Y92.009 Unspecified place in unspecified non-institutional (private) residence as the place of occurrence of the external cause; Z88.8 Allergy status to other drugs, medicaments and biological substances; Z79.4 Long term (current) use of insulin; Z68.36 Body mass index [BMI] 36.0-36.9, adult; Z82.49 Family history of ischemic heart disease and other diseases of the circulatory system; Z91.81 History of falling; I95.1 Orthostatic hypotension; G90.8 Other disorders of autonomic nervous system
CPT/HCPCS: 36415; 70450; 70551; 71110; 73030; 73080; 80048; 80307; 81001; 82306; 82553; 82607; 82962; 83735; 84439; 84443; 84481; 84484; 85025; 87086; 93005; 93306; 93880; 94640; 94760; 96361; 96374; J1815; J3010; J7030; J7613; J7626; 99285-25; G0479

== ENCOUNTER → 2018-06-30 | Outpatient (CLI) | payer MEDICARE, OTHER ==
[2018-06-29 08:22] VITALS: BP 166/91
[~2018-06-30] MED LIST: AMLO1CAP6 PO; ASPI-612 PO; BUPR150T8 PO; FLUT1DIS IH; INSU100I13 SQ; LEVO100T5 PO; NIAC1000 PO; OMEG100020 PO; PROVENTIL HFA6.7 GM IH; SERT100T PO; SIMV80TA7 PO; UBID100C26 PO
--- NOTE | 2018-06-30 17:14 | KCIC ---
EXAM: CT left shoulder DATE: 06/30/2018 2:30 PM COMPARISON: Radiograph 06/27/2018 INDICATION: Left shoulder fracture. TECHNIQUE: CT of the left shoulder was performed without IV contrast. FINDINGS: There is a comminuted left humeral head fracture with fracture planes extending through the surgical neck and anatomic neck as well as to the greater tuberosity. The left greater tuberosity fragment is approximately 1.3 cm dorsal/laterally displaced. There is mild impaction of the humeral shaft component. Mild AC joint degenerative changes are seen. Clinical joint degenerative changes also seen with small associated osteophytes and cystic change. Flattening of the glenoid with glenoid bone stock measuring 3.1 cm superiorly, 3.2 cm at the midportion and 3 cm inferiorly. Diffusely decreased bone mineral density. IMPRESSION: 1. Comminuted left humeral head fracture. Fracture planes involve the surgical neck, anatomic neck and greater tuberosity with mildly displaced greater tuberosity component. 2. Decreased bone mineral density. Electronically signed by: Roni Hoyt MD (06/30/2018 5:10 PM) [facility]
== END | disposition home or self-care (01) ==
LOC: KCIC CT 13:57
PROVIDERS: ATTEND Orthopaedic Surgery
DX: S42.292A Other displaced fracture of upper end of left humerus, initial encounter for closed fracture (principal); X58.XXXA Exposure to other specified factors, initial encounter; Y93.89 Activity, other specified; Y92.89 Other specified places as the place of occurrence of the external cause; Y99.8 Other external cause status; M25.712 Osteophyte, left shoulder; I10 Essential (primary) hypertension; E78.5 Hyperlipidemia, unspecified; E03.9 Hypothyroidism, unspecified
CPT/HCPCS: 73200